=== PATIENT | female | born 1940 | race Caucasian/White ===

== ENCOUNTER 2016-08-22 09:14 | Emergency (ER) | payer MEDICARE ==
[2016-08-22 10:00] LABS: BILIRUBIN,URINE NEGATIVE (NEGATIVE)
[2016-08-22 10:07] LABS: UA w/ MICROSCOPIC CHARGE YES
[2016-08-22 10:13] LABS: BASOPHILS % (AUTO) 0.6 %; EOSINOPHILS # (AUTO) 0.1 10^3/uL (0.0-0.7); EOSINOPHILS % (AUTO) 0.7 %; HCT - HEMATOCRIT 41.3 % (37.0-47.0); HGB - HEMOGLOBIN 13.8 g/dL (12.0-16.0); LYMPHOCYTES # (AUTO) 0.9 10^3/uL (1.5-3.5); LYMPHOCYTES % (AUTO) 11.5 %; MEAN CORPUSCULAR HEMOGLOBIN 29.6 pg (27.0-31.0); MEAN CORPUSCULAR HGB CONC 33.5 g/dL (32.0-36.0); MEAN CORPUSCULAR VOLUME 88.4 fL (81.0-99.0); MEAN PLATELET VOLUME 7.9 fL (7.9-10.8); MONOCYTES # (AUTO) 0.5 10^3/uL (0.0-1.0); MONOCYTES % (AUTO) 6.7 %; NEUTROPHILS # (AUTO) 6.5 10^3/uL (1.5-6.6); NEUTROPHILS % (AUTO) 80.5 %; RED BLOOD COUNT 4.68 10^6/uL (4.20-5.40); RED CELL DISTRIBUTION WIDTH 12.7 % (12.0-15.0); UNCORRECTED WHITE BLOOD COUNT 8.1 x10^3/uL; WHITE BLOOD COUNT 8.1 x10^3/uL (4.8-10.8)
[2016-08-22 10:20] LABS: UR CULTURE IF IND NOT INDICATED
[2016-08-22 10:27] LABS: ALBUMIN/GLOBULIN RATIO 1.6 (1.0-2.2); CALCIUM 9.8 mg/dL (8.5-10.3); CREATININE 0.9 mg/dL (0.4-1.0); POTASSIUM 3.8 mmol/L (3.5-5.0); TOTAL PROTEIN 6.6 g/dL (6.7-8.2)
--- NOTE | 2016-08-22 11:04 | ED Physician Documentation ---
History of Present Illness - Stated complaint Stated Complaint: ABD PX - Chief complaint Chief Complaint: Abd Pain - Additonal information Additional information: hx from pt 75 female s/p appy and lap for peritonitis to ER with R flank to RLQ pain waxing and waning since last night presently gone shaking with the pain not now no fever no NVD no urinary sx Review of Systems Constitutional: reports: Chills. denies: Fever Cardiac: denies: Chest pain / pressure Respiratory: denies: Cough GI: reports: Abdominal Pain. 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 - Present Medications Home Medications: Ambulatory Orders Medication Instructions Recorded Confirmed Ciprofloxacin HCl [Cipro] 500 mg PO BID #20 tablet 08/22/16 Promethazine [Phenergan] 25 mg PO Q6H PRN #10 tab 08/22/16 Tamsulosin [Flomax] 0.4 mg PO DAILY #7 capsule 08/22/16 oxyCODONE [Roxicodone] 5 mg PO Q4-6H #10 tablet 08/22/16 - Allergies Allergies/Adverse Reactions: Allergies Allergy/AdvReac Type Severity Reaction Status Date / Time No Known Drug Allergies Allergy Verified 07/06/14 18:18 - Social History Does the pt smoke?: No Smoking Status: Never smoker Does the pt drink ETOH?: No Does the pt have substance abuse?: No - Immunizations Immunizations are current?: Yes PD ED PE NORMAL - Vitals Vital signs reviewed: Yes - General General: Alert and oriented X 3 - Cardiac Cardiac: RRR - Respiratory Respiratory: No respiratory distress - Abdomen Abdomen: Soft, Non tender, Other (no pulsatile mass) - Back Back: No CVA TTP - Derm Derm: Normal color - Neuro Neuro: Alert and oriented X 3 Results - Vitals Vitals: Vital Signs - 24 hr 08/22/16 08/22/16 09:20 12:12 Temperature 36.0 C L 36.5 C Heart Rate 73 67 Respiratory 18 16 Rate Blood Pressure 168/89 H 139/65 H O2 Saturation 98 97 Oxygen O2 Source Room air - Labs Labs: Laboratory Tests 05/09/0308/22/16 08/22/16 09:20 10:05 10:05 WBC 8.1 RBC 4.68 Hgb 13.8 Hct 41.3 MCV 88.4 MCH 29.6 MCHC 33.5 RDW 12.7 Plt Count 223 MPV 7.9 Neut # 6.5 Lymph # 0.9 L Emanuel # 0.5 Eos # 0.1 Baso # 0.0 Absolute Nucleated RBC 0.00 Nucleated RBCs 0.0 Sodium 141 Potassium 3.8 Chloride 109 Carbon Dioxide 25 Anion Gap 7.0 BUN 24 H Creatinine 0.9 Estimated GFR (MDRD) 61 L Glucose 113 H Calcium 9.8 Total Bilirubin 1.0 AST 22 ALT 16 Alkaline Phosphatase 68 Total Protein 6.6 L Albumin 4.1 Globulin 2.5 Albumin/Globulin Ratio 1.6 Lipase 33 Urine Color YELLOW Urine Clarity CLEAR Urine pH 6.0 Ur Specific [place] 1.020 Urine Protein NEGATIVE Urine Glucose (UA) NEGATIVE Urine Ketones NEGATIVE Urine Occult Blood LARGE H Urine Nitrite NEGATIVE Urine Bilirubin NEGATIVE Urine Urobilinogen 0.2 (NORMAL) Ur Leukocyte Esterase MODERATE H Urine RBC TNTC H Urine WBC 11-25 H Ur Epithelial Cells FEW Transitional Ur Squamous Epith Cells MOD Squamous H Urine Crystals 0-2 Calcium Oxalate Urine Bacteria Many H Ur Microscopic Review INDICATED Urine Culture Comments NOT INDICATED - Rads (name of study) CT AP Radiology: See rad report (1.3 cm right UPJ stone with hydro, also R kidney nodule rec sono, L kidney extra renal pelvis, 0.7 cm L ureteral stone as well, calcification in appendix but no inflammation to suggest acute appy) PD MEDICAL DECISION MAKING - ED course ED course: ivonne ureteral stone, R 1.3 cm with hydro, and infection also L ureteral stone but no hydro and renal fxn is fine and she is making urine high risk to develop bacteremia sepsis neither stone likely to pass spont will need urology no urology at [facility] gave hernandez and called Himanshu d/w urology Dr Colon at [facility] and he recommends if afebrile, nl WBC and renal fxn, pain controlled can dc on antibiotics with close fup so will dc on cipro and pt is fup urology Dr Colon Departure - Departure Disposition: 01 Home, Self Care Clinical Impression: Renal colic on right side Condition: Good Instructions: ED Stone Renal W Colic, ED Kidney Infec Female Prescriptions: Ciprofloxacin HCl [Cipro] 500 mg PO BID #20 tablet Tamsulosin [Flomax] 0.4 mg PO DAILY #7 capsule Promethazine [Phenergan] 25 mg PO Q6H PRN #10 tab PRN Reason: Nausea / Vomiting oxyCODONE [Roxicodone] 5 mg PO Q4-6H #10 tablet Comments: You do not have a fever and your pain is controlled at this time so the urologist Dr Colon in [facility] recommends that you can go home for the weekend on antibiotics, flomax to relax the ureter and medications to ease the pain and nausea as needed Dr Colon will see you next Thursday at [facility] You should go to the radiology department at [facility] at 1130 to get an xray to see if the stones are moving and then go to your appointment at 1230 The office is at [facility]. The address is [address] [place] [address]. The phone number is If you are worse in any way over the weekend (severe pain, fevers, shaking chills, cannot urinate) come straight back to the ER Please follow up with your PMD about your blood pressure - it was high today
--- NOTE | 2016-08-22 12:01 | CT Preliminary Report ---
Exam: CT Abdomen/Pelvis W/O IMPRESSION: 1. Right kidney shows mild hydronephrosis UPJ stone measuring up to 1.3 cm. Upper pole shows a smalle r nonobstructing left renal stone measuring 0.3 cm. Right kidney also shows a hyperdense right upper pole renal nodule measuring 1.2 cm. This is Bosniak type II lesion and ultrasound would be helpful. N o stones are seen in the distal ureter although this is somewhat difficult to visualize because numer ous pelvic phleboliths. 2. Left kidney shows an extra renal pelvis. A junction middle and distal thirds on the left side larg er tract stone is present measuring about 0.7 cm. No other stones are seen distally. 3. Calcification in the right lower quadrant medially located appendix. No surrounding inflammatory c hange. [facility] SITE ID: [id number]
--- NOTE | 2016-08-22 12:09 | CT Report ---
EXAM: CT ABDOMEN AND PELVIS (CT KUB) EXAM DATE: 08/22/2016 11:39 AM. CLINICAL HISTORY: Right flank to RLQ pain. COMPARISONS: None. TECHNIQUE: Routine axial helical CT imaging was performed through the abdomen and pelvis without IV c ontrast. Reconstructions: Coronal and sagittal. In accordance with CT protocol optimization, one or more of the following dose reduction techniques w ere utilized for this exam: automated exposure control, adjustment of mA and/or KV based on patient s ize, or use of iterative reconstructive technique. FINDINGS: Lung Bases: Normal. Right Kidney/Ureter: Right kidney shows mild hydronephrosis. There is a UPJ stone measuring 1.3 cm on series 3 image 50. The upper pole nonobstructing left renal stone is 0.3 cm on series 3 image 46. There is a hyperdense right upper pole renal nodule present measuring 1.2 cm on series 3 image 42. Distal right ureter shows no stones. Left Kidney/Ureter: Left kidney shows no hydronephrosis or stones. There is an extrarenal pelvis pres ent. At the junction of the middle and distal thirds on the left side, there is a large ureteric ston e measuring about 7 mm on series 3 image 78. No other stones are seen distally, although the distal u reter is somewhat difficult to visualize in the midst of several benign-appearing pelvic phleboliths. Other Solid Organs: Noncontrast images of the solid organs are grossly unremarkable. Gallbladder/Bile Ducts: Unremarkable. Peritoneal Cavity: No free fluid, free air or marcelo adenopathy. Bowel is grossly unremarkable. Calcif ication is seen in the right lower quadrant which may be located in the appendix. No surrounding infl ammatory change. Pelvic Organs: No bladder stones or wall thickening. Noncontrast images of the visualized pelvic orga ns are unremarkable. Vasculature: Unremarkable. Other: 4.9 mm retrolisthesis L3-L4. 3.4 mm anterolisthesis L4-L5. 3.2 mm retrolisthesis L5-S1. Disk s pace height loss L5-S1. IMPRESSION: 1. Right kidney shows mild hydronephrosis and a UPJ stone measuring up to 1.3 cm. Upper pole shows a smaller nonobstructing left renal stone measuring 0.3 cm. Right kidney also shows a hyperdense right upper pole renal nodule measuring 1.2 cm. This is Bosniak type II lesion and ultrasound would be help ful. No other stones are seen in the distal ureter although this is somewhat difficult to visualize b ecause of numerous pelvic phleboliths. 2. Left kidney shows an extra renal pelvis. At the junction of middle and distal thirds on the left s soila, a large ureteric stone is present measuring about 0.7 cm. No other stones are seen distally. 3. Calcification in the right lower quadrant may be located in the appendix. No surrounding inflammat ory change. [facility] Referring Provider Line: [phone] SITE ID: [id number]
[2016-08-22] MEDS ORDERED: cefTRIAXone 1 GM VIAL ONE (13:35)
[2016-08-22] MEDS: cefTRIAXone 1 GM in SODIUM CHLORIDE 0.9% MINIBAG 100 ML IV STA (13:53)
[2016-08-22 15:31] VITALS: BP 121/85
== END 2016-08-22 15:41 | disposition home or self-care (01) ==
LOC: ED 09:14
DX: N13.2 Hydronephrosis with renal and ureteral calculous obstruction (principal)
CPT/HCPCS: 36415; 74176; 80053; 81001; 81003; 83690; 85025; 87086; 96374; 99283; 99284

== ENCOUNTER 2016-11-18 11:18 | Outpatient (CLI) | payer MEDICARE ==
[2016-11-18 12:43] LABS: CREATININE 0.8 mg/dL (0.4-1.0)
== END 2016-11-18 11:19 | disposition home or self-care (01) ==
LOC: LAB 11:18
PROVIDERS: ATTEND Urology
DX: N20.1 Calculus of ureter (principal); R39.15 Urgency of urination; N28.9 Disorder of kidney and ureter, unspecified; R31.0 Gross hematuria; N20.0 Calculus of kidney; N13.30 Unspecified hydronephrosis; N39.41 Urge incontinence
CPT/HCPCS: 36415; 82565; 84520

== ENCOUNTER 2017-06-25 16:04 | Outpatient (CLI) | payer MEDICARE ==
[2017-06-25 16:28] LABS: BILIRUBIN,URINE NEGATIVE (NEGATIVE); GLUCOSE, URINE (UA) NEGATIVE (NEGATIVE); KETONES,URINE (UA) NEGATIVE (NEGATIVE); LEUKOCYTE ESTERASE, URINE SMALL (NEGATIVE); NITRITE,URINE NEGATIVE (NEGATIVE); OCCULT BLOOD,URINE NEGATIVE (NEGATIVE); PROTEIN,URINE NEGATIVE (NEGATIVE); UROBILINOGEN,URINE 0.2 (NORMAL) E.U./dL (NORMAL)
[2017-06-25 16:42] LABS: BACTERIA,URINE Few /HPF (None Seen); CLARITY,URINE CLEAR (CLEAR); RBC,URINE 0-5 /HPF (0-5); SQUAMOUS EPITHELIAL CELL,UR MOD Squamous (<= Few); WBC CLUMPS,URINE PRESENT
== END 2017-06-25 16:05 | disposition home or self-care (01) ==
LOC: LAB 16:04
PROVIDERS: ATTEND Urology
DX: R35.0 Frequency of micturition (principal); R30.0 Dysuria; R35.1 Nocturia; R39.15 Urgency of urination
CPT/HCPCS: 81001; 87086

== ENCOUNTER 2017-11-10 15:28 | Outpatient (CLI) | payer MEDICARE ==
[2017-11-10 17:41] LABS: BILIRUBIN,URINE NEGATIVE (NEGATIVE); GLUCOSE, URINE (UA) NEGATIVE (NEGATIVE); KETONES,URINE (UA) NEGATIVE (NEGATIVE); LEUKOCYTE ESTERASE, URINE LARGE (NEGATIVE); NITRITE,URINE NEGATIVE (NEGATIVE); OCCULT BLOOD,URINE TRACE-LYSE (NEGATIVE); PROTEIN,URINE NEGATIVE (NEGATIVE); UROBILINOGEN,URINE 0.2 (NORMAL) E.U./dL (NORMAL)
[2017-11-10 17:59] LABS: BACTERIA,URINE Many /HPF (None Seen); CLARITY,URINE CLOUDY (CLEAR); SQUAMOUS EPITHELIAL CELL,UR NONE SEEN (<= Few); WBC CLUMPS,URINE PRESENT
== END 2017-11-10 15:29 | disposition home or self-care (01) ==
LOC: LAB.F 15:28
PROVIDERS: ATTEND Urology
DX: R32 Unspecified urinary incontinence (principal); R39.9 Unspecified symptoms and signs involving the genitourinary system
CPT/HCPCS: 81001; 87086; 87181

== ENCOUNTER 2017-11-27 07:22 | Outpatient (CLI) | payer MEDICARE ==
[2017-11-27 11:15] LABS: CREATININE 0.7 mg/dL (0.4-1.0)
== END 2017-11-27 07:23 | disposition home or self-care (01) ==
LOC: LAB.F 07:22
PROVIDERS: ATTEND Urology
DX: N28.9 Disorder of kidney and ureter, unspecified (principal); N20.0 Calculus of kidney; N13.30 Unspecified hydronephrosis
CPT/HCPCS: 36415; 82565; 84520

== ENCOUNTER 2018-06-19 07:59 | Outpatient (CLI) | payer MEDICARE ==
[2018-06-19] MEDS ORDERED: IOVERSOL 320 100 ML VIAL IVP ONE ×2 (08:58→09:30)
[2018-06-19 08:59] LABS: CREATININE 0.7 mg/dL (0.4-1.0)
--- NOTE | 2018-06-20 23:03 | CT Report ---
Reason: RENAL LESION Procedure Date: 06/19/2018 Accession Number: [id number] / [id number] Procedure: CT - ABDOMEN W/WO CPT Code: FULL RESULT: EXAM: CT ABDOMEN WITHOUT AND WITH CONTRAST. EXAM DATE: 06/19/2018 09:25 AM. HISTORY: Renal lesion. COMPARISON: Abdomen and pelvis without 08/22/2016 11:29 AM. TECHNIQUE: Routine helical CT imaging was performed through the abdomen before and after administration of IV contrast: 90 cc Optiray 320. Enteric contrast: No. Reconstruction: Coronal and sagittal. In accordance with CT protocol optimization, one or more of the following dose reduction techniques were utilized for this exam: automated exposure control, adjustment of mA and/or KV based on patient size, or use of iterative reconstructive technique. FINDINGS: Lung Bases: Unremarkable. Liver: No suspicious mass identified with note of a chronic left liver cyst. No fatty infiltration. No vascular thrombosis. Biliary system: Gallbladder appears normal. No intrahepatic or extra hepatic biliary duct dilatation. Pancreas: No mass or duct dilatation seen. No peripancreatic inflammatory changes identified. Spleen: Normal. Right kidney: Chronic benign 15 mm hyperdense cyst at the upper pole of the right kidney. Bosniak type II cyst which does not require follow-up. No suspicious mass or hydronephrosis. Left kidney: Couple of tiny cyst of the lower pole measuring up to 8 mm. No solid appearing or suspicious mass identified. Chronic extrarenal pelvis. Adrenals: Normal. Peritoneal cavity: Grossly unremarkable where seen. Study not designed to evaluate bowel. Other: Large gonadal vein calcifications suspected. No definitive ureteral stone were visualized. IMPRESSION: 1. Small bilateral benign renal cysts. No solid appearing or suspicious mass on either side. No further follow-up necessary. 2. Chronic patulous left renal pelvis without evidence of any significant obstruction, likely normal variant. RAD[facility]
== END 2018-06-19 08:00 | disposition home or self-care (01) ==
LOC: LAB 07:59
PROVIDERS: ATTEND Urology
DX: N20.0 Calculus of kidney (principal); N13.30 Unspecified hydronephrosis; N28.1 Cyst of kidney, acquired; Q63.9 Congenital malformation of kidney, unspecified
CPT/HCPCS: 36415; 74170; 82565; 84520; Q9967

== ENCOUNTER 2018-12-29 14:41 | Outpatient (CLI) | payer MEDICARE ==
[2018-12-29 18:24] LABS: BILIRUBIN,URINE NEGATIVE (NEGATIVE); GLUCOSE, URINE (UA) NEGATIVE (NEGATIVE); KETONES,URINE (UA) NEGATIVE (NEGATIVE); LEUKOCYTE ESTERASE, URINE SMALL (NEGATIVE); NITRITE,URINE NEGATIVE (NEGATIVE); OCCULT BLOOD,URINE NEGATIVE (NEGATIVE); PROTEIN,URINE NEGATIVE (NEGATIVE); UROBILINOGEN,URINE 0.2 (NORMAL) E.U./dL (NORMAL)
[2018-12-29 18:49] LABS: BACTERIA,URINE None Seen /HPF (None Seen); CLARITY,URINE CLEAR (CLEAR); RBC,URINE 0-5 /HPF (0-5); SQUAMOUS EPITHELIAL CELL,UR RARE Squamous (<= Few)
== END 2018-12-29 14:42 | disposition home or self-care (01) ==
LOC: LAB.S 14:41
PROVIDERS: ATTEND Urology
DX: N20.0 Calculus of kidney (principal); Z87.440 Personal history of urinary (tract) infections
CPT/HCPCS: 81001; 87077; 87086; 87181

== ENCOUNTER 2019-01-05 13:13 | Outpatient (CLI) | payer MEDICARE ==
--- NOTE | 2019-01-05 16:52 | CT Report ---
Reason: RENAL CALCULUS Procedure Date: 01/05/2019 Accession Number: [id number] / [id number] Procedure: CT - Abdomen/Pelvis WO CPT Code: FULL RESULT: EXAM: CT ABDOMEN AND PELVIS (CT KUB) EXAM DATE: 01/05/2019 01:25 PM. CLINICAL HISTORY: RENAL CALCULUS. Pain. COMPARISONS: ABDOMEN W/WO 06/19/2018 9:15 AM ABDOMEN/PELVIS W/O 08/22/2016 11:29 AM. TECHNIQUE: Routine axial helical CT imaging was performed through the abdomen and pelvis without IV contrast. Reconstructions: Coronal and sagittal. In accordance with CT protocol optimization, one or more of the following dose reduction techniques were utilized for this exam: automated exposure control, adjustment of mA and/or KV based on patient size, or use of iterative reconstructive technique. FINDINGS: Lung Bases: No pleural effusion. Bibasilar linear scarring/atelectasis. Right Kidney/Ureter: Stable hyperdense 1.2 cm upper pole cyst. Punctate nonobstructing right lower pole calculus . No suspicious mass or hydronephrosis. Left Kidney/Ureter: Punctate nonobstructing left renal calculus 07/18. Sub-centimeter lower pole cyst . Stable prominent dilated extrarenal pelvis. Other Solid Organs: Stable left hepatic cyst. Stable unremarkable pancreas, spleen and adrenals Gallbladder/Bile Ducts: Unremarkable. Peritoneal Cavity: No free fluid, free air or marcelo adenopathy. Extensive fecal material throughout the entire colon, question fecal impaction. Multiple phleboliths are present. Pelvic Organs: No bladder stones or wall thickening. Vasculature: Unremarkable. Other: Multilevel degenerative change in the spine with vertebral body offset similar to previous IMPRESSION: 1. Punctate nonobstructing bilateral renal calculi. 2. Stable dilated left extrarenal pelvis. Stable hyperdense right upper pole renal cyst. Stable sub-centimeter left lower pole cyst. 3. Stable left hepatic cyst. 4. Extensive fecal material throughout the entire colon. 5. Stable multilevel degenerative change in the spine. RAD[facility]
== END 2019-01-05 13:14 | disposition home or self-care (01) ==
LOC: DI 13:13
PROVIDERS: ATTEND Urology
DX: N20.0 Calculus of kidney (principal); N28.1 Cyst of kidney, acquired; K76.89 Other specified diseases of liver
CPT/HCPCS: 74176

== ENCOUNTER 2019-01-09 17:43 | Emergency (ER) | payer MEDICARE ==
--- NOTE | 2019-01-09 17:56 | ED Physician Documentation ---
History of Present Illness - Stated complaint Stated Complaint: WEAK/ANXIETY - History obtained from History obtained from: Patient, Family - History of Present Illness Timing: Today - Additonal information Additional information: This is an 78-year-old woman who presents with her family complaints that today she feels overwhelmed and had what she thinks is an anxiety attack. She says she feels very weak, tired and anxious. She is worried about some testing that she has coming up this week including a Mohs procedure and an evaluation by a neurologist for some memory loss.She was with her sister when she just started to feel really hot and warm, sweaty and dizzy like she might pass out so she got up and went outside it lasted maybe 5 to 10 minutes after which she felt just extremely weak and and tired. They were to call the primary care provider but then decided that perhaps he should just come in and be evaluated. She did not really experience palpitations or knowledge feeling short of breath. She had no nausea or vomiting or visual changes. She is on amoxicillin currently for urinary tract infection. She has still some mild burning with urination. Denies history of heart disease or DVT. Review of Systems Constitutional: denies: Fever Eyes: denies: Loss of vision Ears: denies: Loss of hearing Nose: denies: Congestion Throat: denies: Sore throat Cardiac: denies: Chest pain / pressure, Palpitations Respiratory: denies: Dyspnea, Cough GI: reports: Nausea. denies: Abdominal Pain, Vomiting : denies: Dysuria Skin: reports: Lesions (On the left lower extremity that she is scheduled for a Mohs procedure on). denies: Rash Musculoskeletal: denies: Back pain Neurologic: reports: Generalized weakness, Other (Dizziness). 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 - Present Medications Home Medications: Ambulatory Orders Medication Instructions Recorded Confirmed Amoxicillin 500 mg PO 01/09/19 Glucos Sul 2Kcl/MSM/Chond/C/Mn 1 each PO 01/09/19 [Glucosamine Chondroitin Cap] Trospium Chloride 20 mg PO 01/09/19 - Allergies Allergies/Adverse Reactions: Allergies Allergy/AdvReac Type Severity Reaction Status Date / Time oxybutynin Allergy Unknown Verified 09/22/19 18:27 - Social History Does the pt smoke?: No Smoking Status: Never smoker Does the pt drink ETOH?: No Does the pt have substance abuse?: No - Immunizations Immunizations are current?: Yes PD ED PE NORMAL - Vitals Vital signs reviewed: Yes - General General: Alert and oriented X 3, No acute distress, Well developed/nourished, Other (Thin 78-year-old woman who is not in acute distress) - HEENT HEENT: Atraumatic, PERRL, EOMI, Moist mucous membranes - Neck Neck: No adenopathy, Thyroid normal - Cardiac Cardiac: RRR, No murmur - Respiratory Respiratory: No respiratory distress, Clear bilaterally - Abdomen Abdomen: Normal bowel sounds, Soft, Non tender, No organomegaly - Derm Derm: Normal color, Warm and dry, No rash - Extremities Extremities: No edema - Neuro 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: 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, No motor deficit, No sensory deficit, Normal speech - Psych Psych: Normal mood, Normal affect Results - Vitals Vitals: Vital Signs - 24 hr 01/09/19 01/09/19 01/09/19 17:55 18:45 21:03 Temperature 36.5 C Heart Rate 100 89 86 Respiratory 14 18 10 L Rate Blood Pressure 165/76 H 157/86 H 121/62 O2 Saturation 96 98 96 Oxygen O2 Source Room air - EKG (time done) 1833 Rate: Rate (enter#) Rhythm: NSR Intervals: Normal ND QRS: Normal Ischemia: Normal ST segments Other comments: Other comments (PVC) Compare to prior EKG: Old EKG unavailable Computer interpretation: Agree with computer - Labs Labs: Laboratory Tests 01/09/19 01/09/19 01/09/19 18:00 18:41 18:41 WBC 6.7 RBC 4.43 Hgb 13.3 Hct 40.9 MCV 92.3 MCH 30.0 MCHC 32.5 RDW 12.0 Plt Count 227 MPV 9.7 Neut # (Auto) 4.2 Lymph # (Auto) 1.7 [place] # (Auto) 0.7 Eos # (Auto) 0.1 Baso # (Auto) 0.1 Absolute Nucleated RBC 0.00 Nucleated RBC % 0.0 Sodium 143 Potassium 3.8 Chloride 109 Carbon Dioxide 26 Anion Gap 8.0 BUN 19 Creatinine 0.9 Estimated GFR (MDRD) 60 L Glucose 101 H Calcium 10.1 Total Bilirubin 0.9 AST 33 ALT 36 Alkaline Phosphatase 72 Troponin I High Sens Total Protein 6.5 L Albumin 4.0 Globulin 2.5 Albumin/Globulin Ratio 1.6 Lipase 28 Urine Color YELLOW Urine Clarity CLEAR Urine pH 6.0 Ur Specific [place] 1.015 Urine Protein NEGATIVE Urine Glucose (UA) NEGATIVE Urine Ketones NEGATIVE Urine Occult Blood NEGATIVE Urine Nitrite NEGATIVE Urine Bilirubin NEGATIVE Urine Urobilinogen 0.2 (NORMAL) Ur Leukocyte Esterase SMALL H Urine RBC 0-5 Urine WBC 6-10 H Ur Squamous Epith Cells MANY Squamous H Urine Crystals 0-2 Calcium Oxalate Urine Bacteria Few Ur Microscopic Review INDICATED Urine Culture Comments NOT INDICATED 01/09/19 01/09/19 18:41 21:17 WBC RBC Hgb Hct MCV MCH MCHC RDW Plt Count MPV Neut # (Auto) Lymph # (Auto) [place] # (Auto) Eos # (Auto) Baso # (Auto) Absolute Nucleated RBC Nucleated RBC % Sodium Potassium Chloride Carbon Dioxide Anion Gap BUN Creatinine Estimated GFR (MDRD) Glucose Calcium Total Bilirubin AST ALT Alkaline Phosphatase Troponin I High Sens 3.9 6.0 Total Protein Albumin Globulin Albumin/Globulin Ratio Lipase Urine Color Urine Clarity Urine pH Ur Specific [place] Urine Protein Urine Glucose (UA) Urine Ketones Urine Occult Blood Urine Nitrite Urine Bilirubin Urine Urobilinogen Ur Leukocyte Esterase Urine RBC Urine WBC Ur Squamous Epith Cells Urine Crystals Urine Bacteria Ur Microscopic Review Urine Culture Comments - Rads (name of study) CXR Radiology: EMP read indepedently (Cardiomeg. No infiltrate. Elevation of L hemidiaphragm), EMP read contemporaneously PD MEDICAL DECISION MAKING - ED course Complexity details: reviewed results, re-evaluated patient, d/w patient, d/w family ED course: CBC is normal. The EKG does not show acute changes. Her initial troponin was 3.9 and a 3-hour repeat had risen to 6.0. Patient had a very discrete episode of pain and I do not feel comfortable discharging her without verifying that this is not an upward trend on the troponin. I discussed with the hospitalist about admitting her for an observation however he requested that she be kept in the emergency department to recheck the troponin. This was discussed with the family and a repeat troponin will be drawn at 12:45 in the morning. Care turned to Dr Irizarry at 2333.
[2019-01-09 18:09] LABS: BILIRUBIN,URINE NEGATIVE (NEGATIVE); GLUCOSE, URINE (UA) NEGATIVE (NEGATIVE); KETONES,URINE (UA) NEGATIVE (NEGATIVE); LEUKOCYTE ESTERASE, URINE SMALL (NEGATIVE); NITRITE,URINE NEGATIVE (NEGATIVE); OCCULT BLOOD,URINE NEGATIVE (NEGATIVE); PROTEIN,URINE NEGATIVE (NEGATIVE); UROBILINOGEN,URINE 0.2 (NORMAL) E.U./dL (NORMAL)
[2019-01-09 18:10] LABS: CLARITY,URINE CLEAR (CLEAR)
[2019-01-09 18:17] LABS: BACTERIA,URINE Few /HPF (None Seen); CRYSTALS,URINE 0-2 Calcium Oxalate /LPF; RBC,URINE 0-5 /HPF (0-5); SQUAMOUS EPITHELIAL CELL,UR MANY Squamous (<= Few)
[2019-01-09 18:45] LABS: BASOPHILS # (AUTO) 0.1 10^3/uL (0.0-0.1); BASOPHILS % (AUTO) 0.7 %; EOSINOPHILS # (AUTO) 0.1 10^3/uL (0.0-0.7); EOSINOPHILS % (AUTO) 1.8 %; HGB - HEMOGLOBIN 13.3 g/dL (12.0-16.0); LYMPHOCYTES # (AUTO) 1.7 10^3/uL (1.5-3.5); LYMPHOCYTES % (AUTO) 24.9 %; MEAN CORPUSCULAR HGB CONC 32.5 g/dL (32.0-36.0); MEAN CORPUSCULAR VOLUME 92.3 fL (81.0-99.0); MEAN PLATELET VOLUME 9.7 fL (7.9-10.8); MONOCYTES # (AUTO) 0.7 10^3/uL (0.0-1.0); MONOCYTES % (AUTO) 10.2 %; NEUTROPHILS # (AUTO) 4.2 10^3/uL (1.5-6.6); NEUTROPHILS % (AUTO) 62.1 %; PLT - PLATELET COUNT 227 10^3/uL (130-450); RED BLOOD COUNT 4.43 10^6/uL (4.20-5.40); WHITE BLOOD COUNT 6.7 x10^3/uL (4.8-10.8)
[2019-01-09 18:57] LABS: ALBUMIN/GLOBULIN RATIO 1.6 (1.0-2.2); BILIRUBIN,TOTAL 0.9 mg/dL (0.2-1.0); CALCIUM 10.1 mg/dL (8.5-10.3); CREATININE 0.9 mg/dL (0.4-1.0); TOTAL PROTEIN 6.5 g/dL (6.7-8.2)
--- NOTE | 2019-01-09 19:08 | XRAY Report ---
Reason: chest pain Procedure Date: 01/09/2019 Accession Number: [id number] / [id number] Procedure: XR - Chest 1 View X-Ray CPT Code: 45235 FULL RESULT: EXAM: CHEST RADIOGRAPHY EXAM DATE: 01/09/2019 06:35 PM. CLINICAL HISTORY: Chest pain. COMPARISON: ABDOMEN/PELVIS W/O 01/05/2019 1:24 PM. TECHNIQUE: 1 view. FINDINGS: Lungs/Pleura: Mild blunting of the right costophrenic angle. Mildly elevated left hemidiaphragm noted. No consolidation or pneumothorax. Mediastinum: Mild cardiac enlargement noted. Atheromatous plaques of the thoracic arch is noted. Other: None. IMPRESSION: 1. Possible small right pleural effusion. No pneumothorax or significant left lower effusion. Mildly elevated left hemidiaphragm noted. 2. Mild cardiac enlargement. 3. No consolidation. [facility]
[2019-01-10 02:36] VITALS: BP 158/79
--- NOTE | 2019-01-20 04:45 | MISCELLANEOUS PROVIDER NOTE ---
Miscellaneous Provider Note - - Note: Care of this patient was turned over to me by Dr. Bain. Patient had episode of diaphoresis and lightheadedness that resolved prior to ED arrival. EKG did not demonstrate acute changes and high sensitivity troponin x 2 are normal but second result was higher compared with initial result. The two results were from samples obtained three hours apart. Plan is hold in ED for a third high sensitivity troponin and then reevaluate. The third troponin (three hours from previous) reveals no significant change (actually decreased from previous. first result was 3.9, followed by 6.0, and then 5.9). Repeat EKG is normal sinus rhythm at [address] segment abnormalities. Patient is in NAD and tells me she has not had any symptoms during ED stay. She is comfortable with d/c home, will return if symptoms recur, and will follow up with her doctor as soon as feasible. DISPOSITION: 01 Home, self care CLINICAL IMPRESSION: atypical chest pain, unknown cause CONDITION: Good
== END 2019-01-10 03:16 | disposition home or self-care (01) ==
LOC: ED 17:43
DX: R07.89 Other chest pain (principal)
CPT/HCPCS: 36415; 71045; 80053; 81001; 81003; 83690; 84484; 85025; 87086; 93005; 99284

== ENCOUNTER 2019-02-04 12:48 | Emergency (ER) | payer MEDICARE ==
[2019-02-04] MEDS ORDERED: TETANUS/DIPHTHERIA/PERTUSSIS 0.5 ML SYRINGE IM ONE (13:43)
[2019-02-04] MEDS ORDERED: BACITRACIN ZINC OINT 14 GM TOP STA (13:43)
--- NOTE | 2019-02-04 13:45 | ED Physician Documentation ---
History of Present Illness - Stated complaint Stated Complaint: R LEG LACERATION - Chief complaint Chief Complaint: Laceration - History obtained from History obtained from: Patient, Family - History of Present Illness Timing: Today Pain level max: 0 Pain level now: 0 - Additonal information Additional information: Patient hit her right lower extremity against a chair creating a skin tear/laceration to the right lower leg. Bleeding controlled. Unknown last tetanus. Nothing makes it worse. Better with pressure. 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 - Present Medications Home Medications: Ambulatory Orders Medication Instructions Recorded Confirmed Trospium Chloride 20 mg PO 01/09/19 Bacitracin Zinc Oint 1 applic TOP BID #1 tube 02/04/19 - Allergies Allergies/Adverse Reactions: Allergies Allergy/AdvReac Type Severity Reaction Status Date / Time oxybutynin Allergy Unknown Verified 02/04/19 12:59 - Social History Does the pt smoke?: No Smoking Status: Never smoker Does the pt drink ETOH?: No Does the pt have substance abuse?: No - Immunizations Immunizations are current?: No Immunizations: TDAP >10years/unknown PD ED PE NORMAL - Vitals Vital signs reviewed: Yes - General General: Alert and oriented X 3, No acute distress - Derm Derm: Warm and dry - Extremities Extremities: Other (Right lower extremity - 3 cm skin tear, flap laceration. Neurovascular intact.) - Neuro Neuro: Alert and oriented X 3 Results - Vitals Vitals: Vital Signs - 24 hr 02/04/19 12:59 Temperature 36.6 C Heart Rate 98 Respiratory 16 Rate Blood Pressure 148/96 H O2 Saturation 98 Oxygen O2 Source Room air Procedures - Laceration (location) Right lower extremity Length in cm: 3 Wound type: Curved, Flap, Superficial, Clean Neurovascular status: Sensory intact, Motor intact, Vascular intact Wound Preparation: Irrigated copiously NS, Wound explored, To the base Skin layer closure: [place] Other: Patient tolerated well, No complications, Neurovascular intact, Dressing applied (Mepitel), Tetanus booster given Complexity: Simple PD MEDICAL DECISION MAKING - ED course Complexity details: considered differential, d/w patient, d/w family ED course: Patient with a right lower extremity skin tear. Tdap given. Wound was cleansed and then closed with scott. Tolerated well. Mepitel was placed over this. Bacitracin was then applied and a light layer of Kerlix. Warnings of infection and instructions on wound care given at bedside. Also counseled on how to minimize scarring. Patient and family were counseled regarding the potential poor healing of these wounds and the potential need for wound care. Patient and family counseled regarding signs and symptoms for which I believe and urgent re-evaluation would be necessary. Patient with good understanding of and agreement to plan and is comfortable going home at this time This document was made in part using voice recognition software. While efforts are made to proofread this document, sound alike and grammatical errors may occur. Departure - Departure Disposition: 01 Home, Self Care Clinical Impression: Skin tear Condition: Good Instructions: ED Laceration All Follow-Up: Caroline Tapia ARNP [Primary Care Provider] - Prescriptions: Bacitracin Zinc Oint 1 applic TOP BID #1 tube Comments: Follow-up with your doctor in approximately 14 days for staple removal. Leave the Mepitel in place. You can apply antibiotic ointment twice a day on the surface of the Mepitel and then wrapped with a clean bandage. Return if you notice redness, swelling or drainage from the wound. These wounds can be difficult to heal and may require wound care. You were given a tetanus shot today as well.
[2019-02-04] MEDS ORDERED: BACITRACIN ZINC OINT 14 GM TOP ONE (13:52)
[2019-02-04 14:06] VITALS: BP 140/88
== END 2019-02-04 14:05 | disposition home or self-care (01) ==
LOC: ED 12:48
DX: S81.811A Laceration without foreign body, right lower leg, initial encounter (principal); W22.03XA Walked into furniture, initial encounter; Z23 Encounter for immunization
CPT/HCPCS: 12002; 99282; 99283; A9270

== ENCOUNTER 2019-02-05 12:02 | Emergency (ER) | payer MEDICARE ==
[2019-02-05 12:16] VITALS: BP 158/88
[2019-02-05] MEDS ORDERED: BACITRACIN ZINC OINT 14 GM TOP STA (13:05)
--- NOTE | 2019-02-05 13:09 | ED Physician Documentation ---
History of Present Illness - Stated complaint Stated Complaint: WOUND CHECK - Chief complaint Chief Complaint: Laceration - History obtained from History obtained from: Patient - History of Present Illness Timing: Yesterday Pain level max: 0 Pain level now: 0 Improved by: Nothing Worsened by: Nothing - Additonal information Additional information: Patient seen here yesterday for a right lower extremity wound. States bleeding from the wound noted today. No fevers. No redness. No swelling. 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 - Present Medications Home Medications: Ambulatory Orders Medication Instructions Recorded Confirmed Trospium Chloride 20 mg PO 01/09/19 Bacitracin Zinc Oint 1 applic TOP BID #1 tube 02/04/19 - Allergies Allergies/Adverse Reactions: Allergies Allergy/AdvReac Type Severity Reaction Status Date / Time oxybutynin Allergy Unknown Verified 02/04/19 12:59 - Social History Does the pt smoke?: No Smoking Status: Never smoker Does the pt drink ETOH?: No Does the pt have substance abuse?: No - Immunizations Immunizations are current?: No Immunizations: TDAP >10years/unknown PD ED PE NORMAL - Vitals Vital signs reviewed: Yes - General General: Alert and oriented X 3, No acute distress - HEENT HEENT: Moist mucous membranes - Derm Derm: Warm and dry - Extremities Extremities: Other (Slight bleeding from the laceration to the right lower extremity) - Neuro Neuro: Alert and oriented X 3 Results - Vitals Vitals: Vital Signs - 24 hr 02/05/19 12:12 Temperature 36.5 C Heart Rate 96 Respiratory 18 Rate Blood Pressure 158/88 H O2 Saturation 98 Oxygen O2 Source Room air PD MEDICAL DECISION MAKING - ED course Complexity details: reviewed old records, considered differential, d/w patient, d/w family ED course: Additional scott were applied to the wound. Bleeding resolved. Mepitel was reapplied. Wounds were cleansed and bandaged. Bacitracin applied. Warnings of infection and instructions on wound care given at bedside. Also counseled on how to minimize scarring. Patient counseled regarding signs and symptoms for which I believe and urgent re-evaluation would be necessary. Patient with good unde rstanding of and agreement to plan and is comfortable going home at this time This document was made in part using voice recognition software. While efforts are made to proofread this document, sound alike and grammatical errors may occur. Departure - Departure Disposition: 01 Home, Self Care Clinical Impression: Visit for wound check Condition: Good Instructions: ED Laceration All Follow-Up: Caroline Tapia ARNP [Primary Care Provider] - Within 1 week Comments: Follow-up as instructed yesterday. Return if you worsen. Continue the antibiotic ointment at home. Follow-up with your doctor in approximately 10 to 14 days for staple removal. Discharge Date/Time: 02/05/19 13:44
== END 2019-02-05 13:44 | disposition home or self-care (01) ==
LOC: ED 12:02
DX: S81.811A Laceration without foreign body, right lower leg, initial encounter (principal); X58.XXXA Exposure to other specified factors, initial encounter
CPT/HCPCS: 99282; 99284; A9270

== ENCOUNTER 2019-02-07 08:00 | Outpatient (CLI) | payer MEDICARE | END 2019-02-07 23:59 | disposition home or self-care (01) | LOC: LAB.R 08:00 | PROVIDERS: ATTEND Registered Nurse | DX: R30.0 Dysuria (principal) | CPT/HCPCS: 87086 ==

== ENCOUNTER 2019-02-07 16:32 | Outpatient (CLI) | payer MEDICARE ==
--- NOTE | 2019-02-07 22:12 | MRI Report ---
Reason: COGNITIVE DECLINE Procedure Date: 02/07/2019 Accession Number: [id number] / [id number] Procedure: MRI - Brain W/O CPT Code: FULL RESULT: EXAM: MRI BRAIN WITHOUT CONTRAST EXAM DATE: 02/07/2019 05:20 PM. CLINICAL HISTORY: COGNITIVE DECLINE. COMPARISON: HEAD W/O 03/02/2015 4:10 PM. TECHNIQUE: Multiplanar, multisequence T1-weighted and fluid-sensitive MR sequences of the brain were performed. Sequences optimized for routine evaluation. Other: None. IV Contrast: None. FINDINGS: Brain Volume: Normal for age. Parenchyma/Dura: No mass, acute infarct or hemorrhage. There are scattered foci of increased T2 signal involving white matter of bilateral cerebral hemispheres. No evidence of prior large vascular territory infarct. Ventricles/Cisterns: No hydrocephalus. No abnormal extra-axial fluid collection or hemorrhage. Orbits: Symmetric and unremarkable. Sella [place]: Unremarkable. IAC: Symmetric and unremarkable. Vasculature: Normal signal flow void is seen in the major arterial structures at the skull base. Sinuses: There is paranasal sinus mucosal thickening. No sinus fluid levels. Bones: There is a 1.8 cm low T1 signal focus in the left frontal calvarium. Other: None. IMPRESSION: 1. No evidence of mass, infarct, or other acute intracranial process. 2. Moderate microvascular white matter disease. 3. 1.8 m left frontal low T1 signal skull lesion. Appearance is nonspecific and differential considerations include benign lesion or metastatic disease. If clinically indicated postcontrast T1 fat saturation imaging may be helpful. [facility]
== END 2019-02-07 16:33 | disposition home or self-care (01) ==
LOC: DI 16:32
PROVIDERS: ATTEND Psychiatry & Neurology Neurology
DX: R41.81 Age-related cognitive decline (principal); R90.82 White matter disease, unspecified; M89.9 Disorder of bone, unspecified; R30.0 Dysuria
CPT/HCPCS: 70551; 87086; 87181

== ENCOUNTER 2019-03-06 10:04 | Emergency (ER) | payer MEDICARE ==
[2019-03-06 10:34] LABS: MUDS CUTOFF CONCENTRATIONS CUTOFF CONC BELOW:
[2019-03-06 10:41] LABS: BILIRUBIN,URINE NEGATIVE (NEGATIVE); GLUCOSE, URINE (UA) NEGATIVE (NEGATIVE); KETONES,URINE (UA) NEGATIVE (NEGATIVE); LEUKOCYTE ESTERASE, URINE TRACE (NEGATIVE); NITRITE,URINE POSITIVE (NEGATIVE); OCCULT BLOOD,URINE NEGATIVE (NEGATIVE); PH,URINE 7.5 PH (5.0-7.5); PROTEIN,URINE NEGATIVE (NEGATIVE); UROBILINOGEN,URINE 0.2 (NORMAL) E.U./dL (NORMAL)
[2019-03-06 10:44] LABS: CLARITY,URINE CLEAR (CLEAR)
[2019-03-06 10:51] LABS: AMPHETAMINE SCREEN,URINE NEGATIVE (NEGATIVE); BENZODIAZEPINES SCREEN, URINE NEGATIVE (NEGATIVE); COCAINE SCREEN URINE NEGATIVE (NEGATIVE); METHADONE SCREEN, URINE NEGATIVE (NEGATIVE); METHAMPHETAMINES SCREEN, URINE NEGATIVE (NEGATIVE); OPIATE SCREEN, URINE NEGATIVE (NEGATIVE); OXYCODONE SCREEN, URINE NEGATIVE (NEGATIVE); PROPOXYPHENE SCREEN, URINE NEGATIVE (NEGATIVE); TRICYCLIC ANTIDEPRESSANT,URINE NEGATIVE (NEGATIVE)
[2019-03-06 10:58] LABS: BACTERIA,URINE Few /HPF (None Seen); RBC,URINE 0-5 /HPF (0-5); SQUAMOUS EPITHELIAL CELL,UR RARE Squamous (<= Few)
[2019-03-06 11:24] LABS: BASOPHILS # (AUTO) 0.1 10^3/uL (0.0-0.1); BASOPHILS % (AUTO) 0.9 %; EOSINOPHILS # (AUTO) 0.1 10^3/uL (0.0-0.7); EOSINOPHILS % (AUTO) 1.1 %; HGB - HEMOGLOBIN 12.8 g/dL (12.0-16.0); LYMPHOCYTES # (AUTO) 1.1 10^3/uL (1.5-3.5); LYMPHOCYTES % (AUTO) 19.7 %; MEAN CORPUSCULAR HEMOGLOBIN 29.2 pg (27.0-31.0); MEAN CORPUSCULAR VOLUME 94.1 fL (81.0-99.0); MEAN PLATELET VOLUME 9.5 fL (7.9-10.8); MONOCYTES # (AUTO) 0.4 10^3/uL (0.0-1.0); MONOCYTES % (AUTO) 7.8 %; NEUTROPHILS # (AUTO) 3.9 10^3/uL (1.5-6.6); NEUTROPHILS % (AUTO) 70.1 %; PLT - PLATELET COUNT 216 10^3/uL (130-450); RED BLOOD COUNT 4.39 10^6/uL (4.20-5.40); WHITE BLOOD COUNT 5.5 x10^3/uL (4.8-10.8)
[2019-03-06 11:40] LABS: ACETAMINOPHEN < 10 ug/mL (10-30); ALBUMIN/GLOBULIN RATIO 1.7 (1.0-2.2); ALKALINE PHOSPHATASE 71 IU/L (42-121); ALT ALANINE AMINOTRANSFERASE 31 IU/L (10-60); AST ASPARTATE AMINOTRANSFERASE 31 IU/L (10-42); BILIRUBIN,TOTAL 1.1 mg/dL (0.2-1.0); BUN - BLOOD UREA NITROGEN 13 mg/dL (6-20); CALCIUM 9.9 mg/dL (8.5-10.3); CARBON DIOXIDE - CO2 27 mmol/L (21-32); CHLORIDE 107 mmol/L (101-111); CREATININE 0.8 mg/dL (0.4-1.0); GFR - MDRD 69 (>89); GLUCOSE 128 mg/dL (70-100); LIPASE 27 U/L (22-51); SALICYLATE < 6.0 mg/dL; SODIUM 142 mmol/L (135-145); TOTAL PROTEIN 6.3 g/dL (6.7-8.2)
[2019-03-06 12:02] VITALS: BP 147/96
--- NOTE | 2019-03-06 12:19 | ED Physician Documentation ---
PD HPI MHE - Stated complaint Stated Complaint: MHE - Chief complaint Chief Complaint: MHE - History obtained from History obtained from: Patient, Family (daughter) - History of Present Illness Primary symptom: Aggressive behavior (78-year-old woman with recent diagnosis of dementia about 2 months ago, saw her neurologist a couple of times and had a relatively normal MRI per the daughter. She was started on Zoloft about 2 weeks ago, it was stopped almost immediately because in the morning she has been agitated and yelling and screaming. Also of note the neurologist told her to try CBD oil for sedation, that did not seem to effective either. For the last 2 weeks in the mornings she is yelling and screaming at the . They live in a private residence, the daughter is right next door. They have home health coming in starting tomorrow.) Review of Systems Constitutional: denies: Fever GI: denies: Abdominal Pain, Nausea, Vomiting : reports: Frequency. 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 - Present Medications Home Medications: Ambulatory Orders Medication Instructions Recorded Confirmed Trospium Chloride 20 mg PO 01/09/19 Bacitracin Zinc Oint 1 applic TOP BID #1 tube 02/04/19 Ciprofloxacin [Cipro] 250 mg PO Q12H #10 tablet 03/06/19 OLANZapine [Olanzapine] 2.5 mg PO QPM #60 tablet 03/06/19 - Allergies Allergies/Adverse Reactions: Allergies Allergy/AdvReac Type Severity Reaction Status Date / Time oxybutynin Allergy Unknown Verified 03/06/19 10:25 sertraline [From Zoloft] AdvReac Unknown Verified 03/06/19 10:26 - Social History Does the pt smoke?: No Smoking Status: Never smoker Does the pt drink ETOH?: No Does the pt have substance abuse?: No - Immunizations Immunizations are current?: No Immunizations: TDAP >10years/unknown PD ED PE NORMAL - Vitals Vital signs reviewed: Yes - General General: No acute distress, Other (She is alert and oriented to person and place but not date but she does know the year and the president.) - HEENT HEENT: PERRL, EOMI - Neck Neck: Supple, no meningeal sign, No bony TTP - Cardiac Cardiac: RRR, No murmur - Respiratory Respiratory: No respiratory distress, Clear bilaterally - Abdomen Abdomen: Normal bowel sounds, Soft, Non tender - Back Back: No CVA TTP, No spinal TTP - Derm Derm: Normal color, Warm and dry - Extremities Extremities: No edema, No calf tenderness / cord - Neuro Neuro: brass roller 2-12 intact, No motor deficit, No sensory deficit, Normal speech Eye Opening: Spontaneous Motor: Obeys Commands Verbal: Oriented GCS Score: 15 - Psych Psych: Normal mood, Normal affect Results - Vitals Vitals: Vital Signs - 24 hr 03/06/19 03/06/19 10:22 12:02 Temperature 36.4 C L Heart Rate 96 99 Respiratory 20 18 Rate Blood Pressure 162/86 H 147/96 H O2 Saturation 98 96 Oxygen O2 Source Room air - Labs Labs: Laboratory Tests 03/06/19 03/06/19 03/06/19 10:11 11:18 11:18 WBC 5.5 RBC 4.39 Hgb 12.8 Hct 41.3 MCV 94.1 MCH 29.2 MCHC 31.0 L RDW 12.0 Plt Count 216 MPV 9.5 Neut # (Auto) 3.9 Lymph # (Auto) 1.1 L Gordon # (Auto) 0.4 Eos # (Auto) 0.1 Baso # (Auto) 0.1 Absolute Nucleated RBC 0.00 Nucleated RBC % 0.0 Sodium 142 Potassium 3.4 L Chloride 107 Carbon Dioxide 27 Anion Gap 8.0 BUN 13 Creatinine 0.8 Estimated GFR (MDRD) 69 L Glucose 128 H Calcium 9.9 Total Bilirubin 1.1 H AST 31 ALT 31 Alkaline Phosphatase 71 Total Protein 6.3 L Albumin 4.0 Globulin 2.3 Albumin/Globulin Ratio 1.7 Lipase 27 TSH Urine Color DARK YELLOW Urine Clarity CLEAR Urine pH 7.5 Ur Specific [place] 1.010 Urine Protein NEGATIVE Urine Glucose (UA) NEGATIVE Urine Ketones NEGATIVE Urine Occult Blood NEGATIVE Urine Nitrite POSITIVE H Urine Bilirubin NEGATIVE Urine Urobilinogen 0.2 (NORMAL) Ur Leukocyte Esterase TRACE H Urine RBC 0-5 Urine WBC 0-3 Ur Squamous Epith Cells RARE Squamous Urine Bacteria Few Ur Microscopic Review INDICATED Urine Culture Comments INDICATED Salicylates < 6.0 Urine Opiates Screen NEGATIVE Ur Oxycodone Screen NEGATIVE Urine Methadone Screen NEGATIVE Ur Propoxyphene Screen NEGATIVE Acetaminophen < 10 L Ur Barbiturates Screen NEGATIVE Ur Tricyclics Screen NEGATIVE Ur Phencyclidine Scrn NEGATIVE Ur Amphetamine Screen NEGATIVE U Methamphetamines Scrn NEGATIVE U Benzodiazepines Scrn NEGATIVE Urine Cocaine Screen NEGATIVE U Cannabinoids Screen POSITIVE H Ethyl Alcohol < 5.0 03/06/19 11:18 WBC RBC Hgb Hct MCV MCH MCHC RDW Plt Count MPV Neut # (Auto) Lymph # (Auto) Gordon # (Auto) Eos # (Auto) Baso # (Auto) Absolute Nucleated RBC Nucleated RBC % Sodium Potassium Chloride Carbon Dioxide Anion Gap BUN Creatinine Estimated GFR (MDRD) Glucose Calcium Total Bilirubin AST ALT Alkaline Phosphatase Total Protein Albumin Globulin Albumin/Globulin Ratio Lipase TSH 0.27 L Urine Color Urine Clarity Urine pH Ur Specific [place] Urine Protein Urine Glucose (UA) Urine Ketones Urine Occult Blood Urine Nitrite Urine Bilirubin Urine Urobilinogen Ur Leukocyte Esterase Urine RBC Urine WBC Ur Squamous Epith Cells Urine Bacteria Ur Microscopic Review Urine Culture Comments Salicylates Urine Opiates Screen Ur Oxycodone Screen Urine Methadone Screen Ur Propoxyphene Screen Acetaminophen Ur Barbiturates Screen Ur Tricyclics Screen Ur Phencyclidine Scrn Ur Amphetamine Screen U Methamphetamines Scrn U Benzodiazepines Scrn Urine Cocaine Screen U Cannabinoids Screen Ethyl Alcohol PD MEDICAL DECISION MAKING - ED course ED course: This is an 78-year-old woman with dementia who is developed some aggressive behaviors in the morning. I advised to stop the CBD and marijuana, we will start a low-dose of Zyprexa in the evening which can be advanced to twice a day if needed, she does have a UTI which we will treat as well. Departure - Departure Disposition: 01 Home, Self Care Clinical Impression: UTI (urinary tract infection) Qualifiers: Urinary tract infection type: acute cystitis Hematuria presence: without hematuria Qualified Code(s): N30.00 - Acute cystitis without hematuria Dementia Qualifiers: Dementia type: Alzheimer's disease Alzheimer's disease onset: unspecified onset Dementia behavioral disturbance: with behavioral disturbance Qualified Code(s): G30.9 - Alzheimer's disease, unspecified Condition: Good Record reviewed to determine appropriate education?: Yes Instructions: ED Dementia Caregiver Support, ED UTI Cystitis Female Prescriptions: Ciprofloxacin [Cipro] 250 mg PO Q12H #10 tablet OLANZapine [Olanzapine] 2.5 mg PO QPM #60 tablet Comments: Followup with the neurologist in [place], call tomorrow for next appointment. We will culture the urine, if a change in therapy is necessary we will call in 2-3 days. Return if worse.
== END 2019-03-06 12:40 | disposition home or self-care (01) ==
LOC: ED 10:04
DX: N30.00 Acute cystitis without hematuria (principal); G30.9 Alzheimer's disease, unspecified
CPT/HCPCS: 36415; 80053; 80306; 80307; 80320; 80329; 81001; 81003; 83690; 84443; 85025; 87086; 99283

== ENCOUNTER 2019-03-21 07:00 | Outpatient (CLI) | payer MEDICARE ==
[2019-03-21 20:13] LABS: BILIRUBIN,URINE NEGATIVE (NEGATIVE); GLUCOSE, URINE (UA) NEGATIVE (NEGATIVE); KETONES,URINE (UA) NEGATIVE (NEGATIVE); LEUKOCYTE ESTERASE, URINE NEGATIVE (NEGATIVE); NITRITE,URINE NEGATIVE (NEGATIVE); OCCULT BLOOD,URINE NEGATIVE (NEGATIVE); PROTEIN,URINE NEGATIVE (NEGATIVE); UROBILINOGEN,URINE 0.2 (NORMAL) E.U./dL (NORMAL)
[2019-03-21 20:14] LABS: CLARITY,URINE CLEAR (CLEAR)
== END 2019-03-21 23:59 | disposition home or self-care (01) ==
LOC: LAB.R 07:00
PROVIDERS: ATTEND Registered Nurse
DX: R30.0 Dysuria (principal)
CPT/HCPCS: 81001; 81003; 87086

== ENCOUNTER 2019-05-05 17:33 | Emergency (ER) | payer MEDICARE ==
--- NOTE | 2019-05-05 20:15 | ED Physician Documentation ---
PD HPI ABD PAIN - Stated complaint Stated Complaint: FEMALE /ABD PX - Chief complaint Chief Complaint: Abd Pain - History obtained from History obtained from: Patient, Family - History of Present Illness Timing - onset: Other (78-year-old woman with dementia, last good BM was about 8 days ago, has had some smears in mud since then and has some on and off abdominal discomfort. 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 - Present Medications Home Medications: Ambulatory Orders Medication Instructions Recorded Confirmed Trospium Chloride 20 mg PO BID 01/09/19 QUEtiapine [SEROquel] 12.5 mg PO BID 05/05/19 05/05/19 - Allergies Allergies/Adverse Reactions: Allergies Allergy/AdvReac Type Severity Reaction Status Date / Time oxybutynin Allergy Unknown Verified 05/05/19 17:51 sertraline [From Zoloft] AdvReac Unknown Verified 05/05/19 17:51 - Social History Does the pt smoke?: No Smoking Status: Never smoker Does the pt drink ETOH?: No Does the pt have substance abuse?: No - Immunizations Immunizations are current?: Yes Immunizations: TDAP >10years/unknown - POLST Patient has POLST: No PD ED PE NORMAL - General General: No acute distress - Abdomen Abdomen: Soft, Non tender - Rectal Rectal: Other (Incontinent of liquid brown stool, soft fecal impaction, and enema was placed during exam.) - Back Back: No CVA TTP, No spinal TTP - Derm Derm: Normal color, Warm and dry - Extremities Extremities: No edema, No calf tenderness / cord - Neuro Neuro: No: Alert and oriented X 3 Verbal: Confused Results - Vitals Vitals: Vital Signs - 24 hr 05/05/19 05/05/19 17:51 19:52 Temperature 36.5 C 36.6 C Heart Rate 92 93 Respiratory 14 16 Rate Blood Pressure 146/79 H 155/78 H O2 Saturation 98 98 Oxygen O2 Source Room air PD MEDICAL DECISION MAKING - ED course ED course: 78-year-old woman who presents with signs and symptoms of a fecal impaction, she was disimpacted during exam and an enema was placed, subsequently had a very large bowel movement and feeling better. Departure - Departure Disposition: 01 Home, Self Care Clinical Impression: Fecal impaction Condition: Good Record reviewed to determine appropriate education?: Yes Instructions: ED Impaction Fecal Treated Comments: When you have your primary care physician fill out the custodial orders, some sort of house bowel program should be included. Something along the lines of stool softener daily with plenty of water, any day that she does not have a bowel movement and escalating dose of laxatives after that.
[2019-05-05] MEDS ORDERED: SALINE ENEMA 133 ML BOTTLE RC STA (20:16)
[2019-05-05 20:58] VITALS: BP 125/78
== END 2019-05-05 20:58 | disposition home or self-care (01) ==
LOC: ED 17:33
DX: K56.41 Fecal impaction (principal); F03.90 Unspecified dementia, unspecified severity, without behavioral disturbance, psychotic disturbance, mood disturbance, and anxiety
CPT/HCPCS: 99282; 99284; A9270

== ENCOUNTER 2019-08-25 06:41 | Outpatient (CLI) | payer MEDICARE ==
--- NOTE | 2019-08-25 08:34 | Ultrasound Report ---
Reason: ABD PAIN Procedure Date: 08/25/2019 Accession Number: [id number] / [id number] Procedure: US - Abdomen Complete CPT Code: Final Report FULL RESULT: EXAM: ABDOMEN ULTRASOUND EXAM DATE: 08/25/2019 08:04 AM. CLINICAL HISTORY: Abdominal pain. COMPARISON: ABDOMEN/PELVIS W/O 01/05/2019 1:24 PM ABDOMEN W/WO 06/19/2018 9:15 AM ABDOMEN/PELVIS W/O 08/22/2016 11:29 AM. TECHNIQUE: Real-time scanning was performed with static images obtained. FINDINGS: Liver: Normal in size and echotexture. The right lobe of the liver measures up to 15.1 cm. There is a simple cyst in the left lobe of the liver measuring 3.6 x 3.4 x 2.2 cm. Main portal vein flow: Hepatopetal. Gallbladder: No stones, wall thickening, or sonographic Moon's sign. There is an incidentally noted gallbladder polyp measuring 2 mm. Biliary System: Common bile duct measures 5.2 mm. No intrahepatic or extrahepatic ductal dilatation. Pancreas: Visualized portion is unremarkable. Kidneys: Right: 9.0 cm longitudinally. There is a simple cortical cyst at the superior pole measuring 1.3 x 0.9 x 1.4 cm. No imaging follow-up is recommended per consensus recommendations based on imaging criteria. No contour-deforming mass, stones, or hydronephrosis. Left: 10.4 cm longitudinally. No contour-deforming mass or stones. There is moderate dilatation of the renal pelvis and calyces. A prominent extrarenal pelvis is present. There is trace perinephric fluid. Spleen: 8.5 cm. Normal in size and echotexture. Aorta and Inferior Vena Cava: Unremarkable. Other: None. IMPRESSION: 1. Moderate dilatation of the left renal pelvis and calyces with a prominent renal pelvis, as seen on multiple prior CT exams dating back to 08/22/2016. Although this left renal collecting system dilatation is probably chronic, the presence of trace perinephric fluid raises the possibility of acute obstruction. Consider further evaluation with CT KUB to assess for ureteral stones or other distal obstruction if clinically appropriate. 2. Incidentally noted gallbladder polyp measuring 2 mm, almost certainly benign. No further workup recommended. Management above is based on recommendations outlined in an ACR White Paper: Gunnar Bello al. Managing Incidental Findings on Abdominal and Pelvic CT and MRI, Part 4: White Paper of the ACR Incidental Findings Committee II on Gallbladder and Biliary Findings. Journal of the [place] [employer] 10, 953-956 (2013). [facility]
== END 2019-08-25 06:42 | disposition home or self-care (01) ==
LOC: DI 06:41
PROVIDERS: ATTEND Nurse Practitioner Gerontology
DX: R10.9 Unspecified abdominal pain (principal)
CPT/HCPCS: 76700

== ENCOUNTER 2019-08-28 14:03 | Outpatient (CLI) | payer MEDICARE | END 2019-08-28 14:04 | disposition critical access hospital (66) | LOC: EMS 14:03 | PROVIDERS: ATTEND Surgery | DX: R41.0 Disorientation, unspecified (principal); R50.9 Fever, unspecified | CPT/HCPCS: A0425; A0429 ==

== ENCOUNTER 2019-08-28 14:20 | Inpatient (IN) | payer MEDICARE ==
[2019-08-28] MEDS ORDERED: cefTRIAXone 1 GM in SODIUM CHLORIDE 0.9% MINIBAG 100 ML IV STA (14:46)
--- NOTE | 2019-08-28 14:47 | ED Physician Documentation ---
PD HPI FEMALE - Stated complaint Stated Complaint: AMS - Chief complaint Chief Complaint: UTI - History of Present Illness Timing - onset: Other (This is a tere but confused demented 78-year-old woman who presents by ambulance from [facility] for presumed UTI. There is a report of a temperature of 100.6. A urinalysis was done 2 days ago which was positive and a urine culture is growing gram-negative rods, greater than 100,000 colony-forming units per milliliter. She also had an ultrasound which was notable for renal obstruction. 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 - Present Medications Home Medications: Ambulatory Orders Medication Instructions Recorded Confirmed Trospium Chloride 20 mg PO BID 01/09/19 QUEtiapine [SEROquel] 12.5 mg PO BID 05/05/19 05/05/19 Donepezil HCl 5 mg PO DAILY 08/28/19 08/28/19 Melatonin 5 mg PO DAILY PM 08/28/19 08/28/19 Mirtazapine 15 mg PO DAILY 08/28/19 08/28/19 - Allergies Allergies/Adverse Reactions: Allergies Allergy/AdvReac Type Severity Reaction Status Date / Time oxybutynin Allergy Unknown Verified 05/05/19 17:51 sertraline [From Zoloft] AdvReac Unknown Verified 05/05/19 17:51 - Social History Does the pt smoke?: No Smoking Status: Never smoker Does the pt drink ETOH?: No Does the pt have substance abuse?: No - Immunizations Immunizations are current?: Yes Immunizations: TDAP >10years/unknown - POLST Patient has POLST: No PD ED PE NORMAL - Vitals Vital signs reviewed: Yes - General General: Other (She is cooperative and pleasant but very demented, for example she asks me if I remember being to her.) - HEENT HEENT: PERRL, EOMI - Neck Neck: Supple, no meningeal sign, No bony TTP - Cardiac Cardiac: RRR, No murmur - Respiratory Respiratory: No respiratory distress, Clear bilaterally - Abdomen Abdomen: Non tender - Back Back: No CVA TTP, No spinal TTP - Derm Derm: Normal color, Warm and dry - Extremities Extremities: No edema, No calf tenderness / cord - Neuro Neuro: No motor deficit, No sensory deficit Results - Vitals Vitals: Vital Signs - 24 hr 08/28/19 08/28/19 08/28/19 14:27 14:42 16:33 Temperature 37.1 C 36.6 C 38.4 C H Heart Rate 95 112 H 124 H Respiratory 16 20 24 Rate Blood Pressure 105/69 179/150 H 106/89 H O2 Saturation 99 97 08/28/19 17:32 Temperature 37.2 C Heart Rate Respiratory Rate Blood Pressure O2 Saturation Oxygen O2 Source Room air - Labs Labs: Laboratory Tests 08/28/19 08/28/19 08/28/19 14:39 14:55 14:55 WBC 25.3 H RBC 4.46 Hgb 13.6 Hct 40.9 MCV 91.7 MCH 30.5 MCHC 33.3 RDW 12.9 Plt Count 241 MPV 10.0 Neut # (Auto) Not Reportable Lymph # (Auto) Not Reportable [place] # (Auto) Not Reportable Eos # (Auto) Not Reportable Baso # (Auto) Not Reportable Absolute Nucleated RBC Not Reportable Total Counted 100 Band Neuts % (Manual) 5 Abnorm Lymph % (Manual) 0 Nucleated RBC % Not Reportable Neutrophils # (Manual) 24.5 H Lymphocytes # (Manual) 0.3 L Monocytes # (Manual) 0.5 Eosinophils # (Manual) 0.0 Basophils # (Manual) 0.0 Differential Comment MANUAL DIFFERENTIAL Manual Slide Review Indicated Platelet Estimate NORMAL (130-450,000) Platelet Morphology NORMAL APPEARANCE RBC Morph Micro Appear NORMAL APPEARANCE Sodium 130 L Potassium 3.5 Chloride 94 L Carbon Dioxide 25 Anion Gap 11.0 BUN 49 H Creatinine 1.7 H Estimated GFR (MDRD) 29 L Glucose 117 H Lactic Acid Calcium 9.7 Total Bilirubin 1.5 H AST 26 ALT 30 Alkaline Phosphatase 118 Total Protein 6.0 L Albumin 3.0 L Globulin 3.0 Albumin/Globulin Ratio 1.0 Lipase 31 Urine Color YELLOW Urine Clarity HAZY Urine pH 5.5 Ur Specific [place] 1.015 Urine Protein 30 H Urine Glucose (UA) NEGATIVE Urine Ketones NEGATIVE Urine Occult Blood TRACE-INTA Urine Nitrite NEGATIVE Urine Bilirubin NEGATIVE Urine Urobilinogen 1 (NORMAL) Ur Leukocyte Esterase NEGATIVE Urine RBC 0-5 Urine WBC 0-3 Ur Squamous Epith Cells RARE Squamous Amorphous Sediment Few Urine Bacteria Rare Ur Microscopic Review INDICATED Urine Culture Comments NOT INDICATED 08/28/19 14:55 WBC RBC Hgb Hct MCV MCH MCHC RDW Plt Count MPV Neut # (Auto) Lymph # (Auto) [place] # (Auto) Eos # (Auto) Baso # (Auto) Absolute Nucleated RBC Total Counted Band Neuts % (Manual) Abnorm Lymph % (Manual) Nucleated RBC % Neutrophils # (Manual) Lymphocytes # (Manual) Monocytes # (Manual) Eosinophils # (Manual) Basophils # (Manual) Differential Comment Manual Slide Review Platelet Estimate Platelet Morphology RBC Morph Micro Appear Sodium Potassium Chloride Carbon Dioxide Anion Gap BUN Creatinine Estimated GFR (MDRD) Glucose Lactic Acid 1.7 Calcium Total Bilirubin AST ALT Alkaline Phosphatase Total Protein Albumin Globulin Albumin/Globulin Ratio Lipase Urine Color Urine Clarity Urine pH Ur Specific [place] Urine Protein Urine Glucose (UA) Urine Ketones Urine Occult Blood Urine Nitrite Urine Bilirubin Urine Urobilinogen Ur Leukocyte Esterase Urine RBC Urine WBC Ur Squamous Epith Cells Amorphous Sediment Urine Bacteria Ur Microscopic Review Urine Culture Comments PD MEDICAL DECISION MAKING - ED course ED course: This is an 78-year-old woman who presents febrile and tachycardic with a known UTI. Culture is pending. She has a longstanding obstruction of the left kidney and this was imaged again today which showed worsening. This was discussed by phone with the patient's daughter Yesenia and Bang, the patient's . They both agree that the patient would not want to be transferred at this juncture for potential surgical procedure given her frail state and advanced dementia and prefer a trial of IV antibiotics only. Departure - Departure Disposition: [facility] DC/Xfer Clinical Impression: DNR (do not resuscitate) UTI (urinary tract infection) Qualifiers: Urinary tract infection type: acute pyelonephritis Qualified Code(s): N10 - Acute pyelonephritis Sepsis Qualifiers: Sepsis type: sepsis due to unspecified organism Sepsis acute organ dysfunction status: with acute organ dysfunction Severe sepsis acute organ dysfunction type: acute renal failure Acute renal failure type: unspecified Severe sepsis shock status: without septic shock Qualified Code(s): A41.9 - Sepsis, unspecified organism; R65.20 - Severe sepsis without septic shock; N17.9 - Acute kidney failure, unspecified Condition: Serious
[2019-08-28 14:50] LABS: BILIRUBIN,URINE NEGATIVE (NEGATIVE); GLUCOSE, URINE (UA) NEGATIVE (NEGATIVE); KETONES,URINE (UA) NEGATIVE (NEGATIVE); LEUKOCYTE ESTERASE, URINE NEGATIVE (NEGATIVE); NITRITE,URINE NEGATIVE (NEGATIVE); OCCULT BLOOD,URINE TRACE-INTA (NEGATIVE); PH,URINE 5.5 PH (5.0-7.5); PROTEIN,URINE 30 mg/dL (NEGATIVE); UROBILINOGEN,URINE 1 (NORMAL) E.U./dL (NORMAL)
[2019-08-28 15:04] LABS: CLARITY,URINE HAZY (CLEAR)
[2019-08-28 15:05] LABS: BASOPHILS % (AUTO) 0.5 %; EOSINOPHILS % (AUTO) 0.2 %; HGB - HEMOGLOBIN 13.6 g/dL (12.0-16.0); LYMPHOCYTES % (AUTO) 1.2 %; MEAN CORPUSCULAR HEMOGLOBIN 30.5 pg (27.0-31.0); MEAN CORPUSCULAR HGB CONC 33.3 g/dL (32.0-36.0); MEAN CORPUSCULAR VOLUME 91.7 fL (81.0-99.0); MONOCYTES % (AUTO) 3.6 %; NEUTROPHILS % (AUTO) 91.2 %; PLT - PLATELET COUNT 241 10^3/uL (130-450); RED BLOOD COUNT 4.46 10^6/uL (4.20-5.40); RED CELL DISTRIBUTION WIDTH 12.9 % (12.0-15.0); WHITE BLOOD COUNT 25.3 x10^3/uL (4.8-10.8)
[2019-08-28 15:05] LABS: AMORPHOUS SEDIMENT,UR Few /LPF; BACTERIA,URINE Rare /HPF (None Seen); RBC,URINE 0-5 /HPF (0-5); SQUAMOUS EPITHELIAL CELL,UR RARE Squamous (<= Few)
[2019-08-28] MEDS ORDERED: IOVERSOL 320 100 ML VIAL IVP ONE (15:18)
[2019-08-28 15:24] LABS: ABNORMAL LYMPHS % (MANUAL) 0 %
[2019-08-28 15:29] LABS: BILIRUBIN,TOTAL 1.5 mg/dL (0.2-1.0); CALCIUM 9.7 mg/dL (8.5-10.3); CREATININE 1.7 mg/dL (0.4-1.0)
[2019-08-28 15:37] LABS: BAND NEUTROPHILS % (MANUAL) 5 %; LYMPHOCYTES # (MANUAL) 0.3 10^3/uL (1.5-3.5); LYMPHOCYTES % (MANUAL) 1 %; MONOCYTES # (MANUAL) 0.5 10^3/uL (0.0-1.0); PLATELET MORPHOLOGY NORMAL APPEARANCE (NORMAL); RBC MORPHOLOGY (MULTIPLE) NORMAL APPEARANCE (NORMAL)
[2019-08-28 15:38] LABS: DIFFERENTIAL COMMENT MANUAL DIFFERENTIAL; PLATELET ESTIMATE, MANUAL NORMAL (130-450,000) (NORMAL)
[2019-08-28] MEDS ORDERED: SODIUM CHLORIDE 0.9% 1,000 ML IV ONE (16:04)
[2019-08-28] MEDS ORDERED: ACETAMINOPHEN 325 MG TABLET PO STA (16:46)
--- NOTE | 2019-08-28 17:22 | CT Report ---
Reason: UTI c obstruction Procedure Date: 08/28/2019 Accession Number: [id number] / [id number] Procedure: CT - Abdomen/Pelvis WO CPT Code: Final Report FULL RESULT: EXAM: CT ABDOMEN AND PELVIS (CT KUB) EXAM DATE: 08/28/2019 04:57 PM. CLINICAL HISTORY: UTI with obstruction. COMPARISONS: ABDOMEN/PELVIS W/O 01/05/2019 1:24 PM ABDOMEN/PELVIS W/O 08/22/2016 11:29 AM. TECHNIQUE: Routine axial helical CT imaging was performed through the abdomen and pelvis without IV contrast. Reconstructions: Coronal and sagittal. In accordance with CT protocol optimization, one or more of the following dose reduction techniques were utilized for this exam: automated exposure control, adjustment of mA and/or KV based on patient size, or use of iterative reconstructive technique. FINDINGS: Lung Bases: Trace bilateral pleural effusions versus basilar dependent atelectasis. Right Kidney/Ureter: Visualization significantly limited by motion artifact. There is a hyperdense cortical lesion in the lateral midpole with a density of 87 Hounsfield units which measures 12 mm in diameter. Unchanged. No visualized right kidney stone or hydronephrosis. The right ureter is not visible secondary to motion. Left Kidney/Ureter: There is moderate to severe pelvicaliectasis of the left kidney with new fat stranding or fluid surrounding the left kidney. No visualized kidney stone. Limited visualization of the left kidney and ureter secondary to motion artifact. There are multiple calcifications in the abdomen and pelvis which appear without gross change. Other Solid Organs: There is a cyst in the left lobe of the liver. The liver and spleen appear normal in size. The pancreas is poorly visualized. No definite calcified gallstones. Gallbladder/Bile Ducts: Unremarkable Peritoneal Cavity: No free air identified. Limited visualization of bowel secondary to motion. Pelvic Organs: Pelvis not well seen secondary to motion. Vasculature: No visualized abdominal aortic aneurysm. Other: None. IMPRESSION: 1. Increased hydronephrosis of the left kidney with moderate to severe pelvicaliectasis. New left perinephric inflammatory changes or fluid. Characterization is significantly limited by motion artifact. Suspicious for worsening obstruction of indeterminate etiology. Probable pyelonephritis. The left ureter is not seen. 2. Hyperdense right renal lesion, probable hyperdense cyst without interval change. RADIA
--- NOTE | 2019-08-28 19:15 | HISTORY & PHYSICAL EXAMINATION ---
Chief Complaint - Chief Complaint Chief Complaint: altered mental status History of Present Illness - Admitted From Admitted From:: [facility] ED - History Obtained From Records Reviewed: yes History obtained from: ED physician and chart Exam Limitations: Dementia - History of Present Illness HPI Comment/Other: This HPI is obtained from the HPI of the ED H&P. An HPI could not be obtained from the patient because she has dementia thus she is not a good historian. This is a tere but confused demented 78-year-old woman who presents by ambulance from [facility] for presumed UTI. There is a report of a temperature of 100.6. A urinalysis was done 2 days ago which was positive and a urine culture is growing gram-negative rods, greater than 100,000 colony-forming units per milliliter. She also had an ultrasound which was notable for renal obstruction. The patient is unable to give any history due to dementia. Despite dementia it is reported that she was more obtunded than her baseline. In the ED she was found to have a white blood cell count of 25.She also had a temperature of 38.4 C. Her creatinine was 1.7 which is doubled from her baseline. CT scan of the abdomen/pelvis done showed increased hydronephrosis of the left kidney with moderate to severe pelvicaliectasis.. There was also new left perinephric inflammatory changes of fluid. 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 Social History Notes: Could not be obtained at this time because the patient is a poor historian due to dementia. She presents from [facility] dementia unit. - POLST Patient has POLST: No POLST Status: DNR Meds/Allgy - Home Medications Home Medications: Ambulatory Orders Medication Instructions Recorded Confirmed Trospium Chloride 20 mg PO BID 01/09/19 QUEtiapine [SEROquel] 12.5 mg PO BID 05/05/19 05/05/19 Donepezil HCl 5 mg PO DAILY 08/28/19 08/28/19 Melatonin 5 mg PO DAILY PM 08/28/19 08/28/19 Mirtazapine 15 mg PO DAILY 08/28/19 08/28/19 - Allergies Allergies/Adverse Reactions: Allergies Allergy/AdvReac Type Severity Reaction Status Date / Time oxybutynin Allergy Unknown Verified 05/05/19 17:51 sertraline [From Zoloft] AdvReac Unknown Verified 05/05/19 17:51 Review of Systems - Other Findings Other Findings: Review of system is limited because patient has dementia and is a poor historian Prior Level of Functionality: Patient resides at [facility] dementia unit Exam - Vital Signs Vital Signs: Vital Signs x48h Temp Pulse Resp BP Pulse Ox 08/28/19 17:32 37.2 C 08/28/19 16:33 38.4 C H 124 H 24 106/89 H 08/28/19 14:42 36.6 C 112 H 20 179/150 H 97 08/28/19 14:27 37.1 C 95 16 105/69 99 - Physical Exam General Appearance: positive: No acute distress, Alert Eyes Bilateral: positive: PERRL, EOMI ENT: positive: Dry mucous membranes Neck: positive: No JVD, Trachea midline Respiratory: positive: Chest non-tender, No respiratory distress, Breath sounds nml. negative: Wheezes, Rales, Rhonchi Cardiovascular: positive: Regular rate & rhythm Abdomen: positive: Non-tender, No organomegaly, Nml bowel sounds, No distention. negative: Guarding, Rebound Back: positive: Nml inspection Skin: positive: Color nml, No rash, Warm, Dry Extremities: positive: Non-tender, Full ROM, Nml appearance, No pedal edema Neurologic/Psychiatric: positive: Mood/affect nml, Disoriented to place, Disoriented to time Conclusion/Plan - Problem List (1) Sepsis Conclusion/Plan: Secondary to pyelonephritis. Urine and blood cultures were drawn. Patient was started on Rocephin 1 g daily. Tylenol PRN for fever. Qualifiers: Sepsis type: sepsis due to unspecified organism Sepsis acute organ dysfunction status: with acute organ dysfunction Severe sepsis acute organ dysfunction type: acute renal failure Acute renal failure type: unspecified Severe sepsis shock status: without septic shock Qualified Code(s): A41.9 - Sepsis, unspecified organism; R65.20 - Severe sepsis without septic shock; N17.9 - Acute kidney failure, unspecified (2) Pyelonephritis Conclusion/Plan: WBC was 25. Temperature 38.4 C. Patient started on Rocephin 1 g daily. Blood cultures obtained. Tylenol PRN for fever. Patient receiving hydration with normal saline at 100 mils per hour. (3) DUC (acute kidney injury) Conclusion/Plan: Possibly multifactorial. Secondary to Pyelonephritis and right renal obstruction. Patient is on Rocephin 1 g IV daily. Hydronephrosis noted on in the right kidney CT scan of the abd/pelvis. Family has opted not to have patient transferred for obstruction to be directly addressed. We will continue to treat infection and see if the renal function improves. If not we will have further discussion with the family. (4) Dementia Conclusion/Plan: On Donepezil 5 mg p.o. daily and Seroquel 12.5 mg p.o. twice daily Qualifiers: Dementia type: Alzheimer's disease Alzheimer's disease onset: unspecified onset Dementia behavioral disturbance: with behavioral disturbance Qualified Code(s): G30.9 - Alzheimer's disease, unspecified; F02.81 - Dementia in other diseases classified elsewhere with behavioral disturbance (5) Depression Conclusion/Plan: On remeron - Lab Results Fish Bones: 08/29/19 05:25 08/29/19 05:25 Core Measures - Anticipated LOS I expect patient to be DC'd or transferred within 96 hours.: Yes - DVT/VTE - Prophylaxis VTE/DVT Device ordered at admit?: Yes
[2019-08-28] MEDS ORDERED: ACETAMINOPHEN 325 MG TABLET PO PRN (19:34)
[2019-08-28] MEDS: SODIUM CHLORIDE 0.9% 1,000 ML IV SCH (20:55)
[2019-08-28] MEDS: DONEPEZIL 5 MG TABLET PO SCH (22:36)
[2019-08-28] MEDS: QUEtiapine 25 MG TABLET PO SCH (22:38)
[2019-08-29] MEDS: SODIUM CHLORIDE FLUSH 0.9% 10 ML SYRINGE IVP SCH ×3 (03:50→17:32)
[2019-08-29 06:00] LABS: BASOPHILS # (AUTO) 0.1 10^3/uL (0.0-0.1); BASOPHILS % (AUTO) 0.4 %; HGB - HEMOGLOBIN 12.1 g/dL (12.0-16.0); LYMPHOCYTES # (AUTO) 0.3 10^3/uL (1.5-3.5); LYMPHOCYTES % (AUTO) 1.4 %; MEAN CORPUSCULAR HEMOGLOBIN 29.8 pg (27.0-31.0); MEAN CORPUSCULAR HGB CONC 32.9 g/dL (32.0-36.0); MEAN CORPUSCULAR VOLUME 90.6 fL (81.0-99.0); MEAN PLATELET VOLUME 10.4 fL (7.9-10.8); MONOCYTES % (AUTO) 4.8 %; NEUTROPHILS # (AUTO) 18.8 10^3/uL (1.5-6.6); PLT - PLATELET COUNT 212 10^3/uL (130-450); RED BLOOD COUNT 4.06 10^6/uL (4.20-5.40); RED CELL DISTRIBUTION WIDTH 12.9 % (12.0-15.0); WHITE BLOOD COUNT 20.7 x10^3/uL (4.8-10.8)
[2019-08-29 06:02] LABS: CALCIUM 9.4 mg/dL (8.5-10.3); CREATININE 1.4 mg/dL (0.4-1.0)
[2019-08-29 06:19] LABS: PLATELET ESTIMATE, MANUAL NORMAL (130-450,000) (NORMAL); PLATELET MORPHOLOGY NORMAL APPEARANCE (NORMAL); RBC MORPHOLOGY (MULTIPLE) NORMAL APPEARANCE (NORMAL)
[2019-08-29] MEDS: SODIUM CHLORIDE 0.9% 1,000 ML IV SCH ×4 (06:29→22:59)
[2019-08-29] MEDS ORDERED: PANTOPRAZOLE 40 MG TABLET PO SCH (07:00)
[2019-08-29] MEDS: QUEtiapine 25 MG TABLET PO SCH ×2 (08:29→21:33)
[2019-08-29] MEDS: POTASSIUM CHLOR 10 MEQ/100 ML 10 MEQ/100 ML BAG IV SCH ×6 (08:30→14:28)
[2019-08-29] MEDS: cefTRIAXone 1 GM in SODIUM CHLORIDE 0.9% MINIBAG 100 ML IV SCH (09:45)
--- NOTE | 2019-08-29 10:58 | PROVIDER PROGRESS NOTE ---
Assessment/Plan - Problem List (1) Sepsis Qualifiers: Sepsis acute organ dysfunction status: with acute organ dysfunction Severe sepsis acute organ dysfunction type: acute renal failure Acute renal failure type: unspecified Severe sepsis shock status: without septic shock Assessment/Plan: Patient developed rigors and her fever went up again. At this time she was even more confused, talking to the ceiling incessantly. We will give IV Ofirmev for fever, she cannot swallow in this current condition (cannot follow commands). Continue to treat the underlying infection. Continue with IV fluids (2) E. coli bacteremia Assessment/Plan: The blood culture has not returned positive and has already been identified as E. coli. Continue with IV ceftriaxone which is empiric treatment, awaiting final sensitivities. Because she is bacteremic, a repeat set of cultures will be done to assure that they are negative. She also needs an Echo to evaluate for endocarditis. This will determine how long her IV antibiotics are required. (3) DUC (acute kidney injury) Assessment/Plan: Improved from 49/1 0.7-40 7/1.4. Continue with IV hydration. Follow-up BMP daily (4) Pyelonephritis Assessment/Plan: Imaging showed kidney involvement. Continue with IV antibiotics. Follow BUN/creat daily. (5) Hydronephrosis Assessment/Plan: It appears that she has an obstruction on the side of where she already had a bad kidney. The family wants no urologic intervention. They are aware that this may cause significant renal failure, it was discussed by the ER doctor with a child and the patient's . They just want just IV fluids and IV antibiotics and to see what would happen. (6) Dementia Qualifiers: Dementia type: Alzheimer's disease Alzheimer's disease onset: unspecified onset Dementia behavioral disturbance: with behavioral disturbance Qualified Code(s): G30.9 - Alzheimer's disease, unspecified; F02.81 - Dementia in other diseases classified elsewhere with behavioral disturbance Assessment/Plan: Yesterday she hadDoes not confusion. Today she seems delirious, related to the fever. (7) Depression Assessment/Plan: Continue with home p.o. meds, when she can swallow - Current Meds Current Meds: Current Medications Generic Name Dose Route Start Last Admin Trade Name Freq PRN Reason Stop Dose Admin Donepezil HCl 5 mg 08/28/19 21:36 08/28/19 22:36 Aricept PO 5 mg QPM EVELINE Administration Ceftriaxone Sodium 1 gm/ 100 mls @ 200 mls/hr 08/29/19 09:00 08/29/19 10:24 Sodium Chloride IV Infused DAILY EVELINE Infusion Sodium Chloride 1,000 mls @ 125 mls/hr 08/29/19 07:07 08/29/19 08:23 Normal Saline 0.9% IV Not Given .Q8H EVELINE Potassium Chloride 10 meq in 100 mls @ 100 mls/hr 08/29/19 08:00 08/29/19 10:49 Potassium Chloride IV 08/29/19 13:59 100 mls/hr Q1H EVELINE Administration Pantoprazole Sodium 40 mg 08/29/19 07:00 08/29/19 06:43 Protonix PO 40 mg QDAC EVELINE Administration Quetiapine Fumarate 12.5 mg 08/28/19 22:00 08/29/19 08:29 Seroquel PO 12.5 mg BID EVELINE Administration Sodium Chloride 10 ml 08/29/19 01:00 08/29/19 08:33 Normal Saline Flush 0.9% IVP 10 ml 0100,0900,1700 EVELINE Administration - Lab Result Fish Bone Diagrams: 08/29/19 05:25 08/29/19 05:25 - Additional Planning My Orders: My Active Orders 08/28/19 18:21 Activity Orders [RC] DAILY Code Status [OTHERS] Routine 08/28/19 Dinner DIET [Dysphagia Puree Diet] [DIET] Subjective - Subjective Patient Reports: Other (Pleasant but disoriented, able to feed herself breakfast, Then in the afternoon she was delirious, talking to the ceiling, reaching out with her arms ahead of her.) Objective Vital Signs: Vital Signs - 24 hr 08/28/19 08/28/19 08/28/19 14:27 14:42 16:33 Temperature 37.1 C 36.6 C 38.4 C H Heart Rate 95 112 H 124 H Heart Rate [ Brachial] Respiratory 16 20 24 Rate Blood Pressure 105/69 179/150 H 106/89 H Blood Pressure [Right Brachial artery] O2 Saturation 99 97 08/28/19 08/28/19 08/29/19 17:32 20:40 00:00 Temperature 37.2 C 37.0 C 36.6 C Heart Rate Heart Rate [ 111 H 80 Brachial] Respiratory 18 18 Rate Blood Pressure Blood Pressure 91/47 L 118/98 H [Right Brachial artery] O2 Saturation 92 96 08/29/19 08/29/19 08:05 08:53 Temperature 36.6 C 36.6 C Heart Rate 92 Heart Rate [ 92 Brachial] Respiratory 18 18 Rate Blood Pressure Blood Pressure 103/56 L [Right Brachial artery] O2 Saturation 94 94 Oxygen O2 Source Room air I&O (Last 24 Hrs): Intake and Output Totals x24h 08/27/19 08/28/19 08/29/19 23:59 23:59 23:59 Intake Total 1100 2079 Output Total 100 Balance 1100 1979 General: Alert HEENT: EOMI (Sunken eyes), Other (Dry mucosa, poor dental hygiene.) Neck: Supple Neuro: Disoriented, Other (Moves all extremities spontaneously. Is currently delirious) Cardiovascular: No murmurs Respiratory: No respiratory distress Abdomen: Soft Extremities: No edema, Other (Positive skin tenting.) - Results Results: Laboratory Results WBC 20.7 x10^3/uL (4.8-10.8) H 08/29/19 05:25 RBC 4.06 10^6/uL (4.20-5.40) L 08/29/19 05:25 Hgb 12.1 g/dL (12.0-16.0) 08/29/19 05:25 Hct 36.8 % (37.0-47.0) L 08/29/19 05:25 MCV 90.6 fL (81.0-99.0) 08/29/19 05:25 MCH 29.8 pg (27.0-31.0) 08/29/19 05:25 MCHC 32.9 g/dL (32.0-36.0) 08/29/19 05:25 RDW 12.9 % (12.0-15.0) 08/29/19 05:25 Plt Count 212 10^3/uL (130-450) 08/29/19 05:25 MPV 10.4 fL (7.9-10.8) 08/29/19 05:25 Neut # (Auto) 18.8 10^3/uL (1.5-6.6) H 08/29/19 05:25 Lymph # (Auto) 0.3 10^3/uL (1.5-3.5) L 08/29/19 05:25 [place] # (Auto) 1.0 10^3/uL (0.0-1.0) 08/29/19 05:25 Eos # (Auto) 0.0 10^3/uL (0.0-0.7) 08/29/19 05:25 Baso # (Auto) 0.1 10^3/uL (0.0-0.1) 08/29/19 05:25 Absolute Nucleated RBC 0.00 x10^3/uL 08/29/19 05:25 Total Counted 100 08/28/19 14:55 Band Neuts % (Manual) 5 % (0-10) 08/28/19 14:55 Abnorm Lymph % (Manual) 0 % 08/28/19 14:55 Nucleated RBC % 0.0 /100WBC 08/29/19 05:25 Neutrophils # (Manual) 24.5 10^3/uL (1.5-6.6) H 08/28/19 14:55 Lymphocytes # (Manual) 0.3 10^3/uL (1.5-3.5) L 08/28/19 14:55 Monocytes # (Manual) 0.5 10^3/uL (0.0-1.0) 08/28/19 14:55 Eosinophils # (Manual) 0.0 10^3/uL (0-0.7) 08/28/19 14:55 Basophils # (Manual) 0.0 10^3/uL (0-0.1) 08/28/19 14:55 Differential Comment MANUAL DIFFERENTIAL 08/28/19 14:55 Manual Slide Review Indicated 08/29/19 05:25 Platelet Estimate NORMAL (130-450,000) (NORMAL) 08/29/19 05:25 Platelet Morphology NORMAL APPEARANCE (NORMAL) 08/29/19 05:25 RBC Morph Micro Appear NORMAL APPEARANCE (NORMAL) 08/29/19 05:25 Sodium 136 mmol/L (135-145) 08/29/19 05:25 Potassium 2.9 mmol/L (3.5-5.0) L 08/29/19 05:25 Chloride 103 mmol/L (101-111) 08/29/19 05:25 Carbon Dioxide 24 mmol/L (21-32) 08/29/19 05:25 Anion Gap 9.0 (6-13) 08/29/19 05:25 BUN 47 mg/dL (6-20) H 08/29/19 05:25 Creatinine 1.4 mg/dL (0.4-1.0) H 08/29/19 05:25 Estimated GFR (MDRD) 36 (>89) L 08/29/19 05:25 Glucose 128 mg/dL (70-100) H 08/29/19 05:25 Lactic Acid 1.7 mmol/L (0.5-2.2) 08/28/19 14:55 Calcium 9.4 mg/dL (8.5-10.3) 08/29/19 05:25 Magnesium 2.2 mg/dL (1.7-2.8) 08/29/19 05:25 Total Bilirubin 1.5 mg/dL (0.2-1.0) H 08/28/19 14:55 AST 26 IU/L (10-42) 08/28/19 14:55 ALT 30 IU/L (10-60) 08/28/19 14:55 Alkaline Phosphatase 118 IU/L (42-121) 08/28/19 14:55 Total Protein 6.0 g/dL (6.7-8.2) L 08/28/19 14:55 Albumin 3.0 g/dL (3.2-5.5) L 08/28/19 14:55 Globulin 3.0 g/dL (2.1-4.2) 08/28/19 14:55 Albumin/Globulin Ratio 1.0 (1.0-2.2) 08/28/19 14:55 Lipase 31 U/L (22-51) 08/28/19 14:55 Urine Color YELLOW 08/28/19 14:39 Urine Clarity HAZY (CLEAR) 08/28/19 14:39 Urine pH 5.5 PH (5.0-7.5) 08/28/19 14:39 Ur Specific [place] 1.015 (1.002-1.030) 08/28/19 14:39 Urine Protein 30 mg/dL (NEGATIVE) H 08/28/19 14:39 Urine Glucose (UA) NEGATIVE mg/dL (NEGATIVE) 08/28/19 14:39 Urine Ketones NEGATIVE mg/dL (NEGATIVE) 08/28/19 14:39 Urine Occult Blood TRACE-INTA (NEGATIVE) 08/28/19 14:39 Urine Nitrite NEGATIVE (NEGATIVE) 08/28/19 14:39 Urine Bilirubin NEGATIVE (NEGATIVE) 08/28/19 14:39 Urine Urobilinogen 1 (NORMAL) E.U./dL (NORMAL) 08/28/19 14:39 Ur Leukocyte Esterase NEGATIVE (NEGATIVE) 08/28/19 14:39 Urine RBC 0-5 /HPF (0-5) 08/28/19 14:39 Urine WBC 0-3 /HPF (0-5) 08/28/19 14:39 Ur Squamous Epith Cells RARE Squamous (<= Few) 08/28/19 14:39 Amorphous Sediment Few /LPF 08/28/19 14:39 Urine Bacteria Rare /HPF (None Seen) 08/28/19 14:39 Ur Microscopic Review INDICATED 08/28/19 14:39 Urine Culture Comments NOT INDICATED 08/28/19 14:39
--- NOTE | 2019-08-29 11:39 | PHARMACY PROGRESS NOTE ---
- Best Possible Medication History Admit Date and Time: 08/28/191818 Processed by: Pharmacy Medication History completed: Yes Patient Interview: Pt unable to participate Secondary Source(s): Pharmacy records, Insurance records, Facility MAR as ONLY source As the person ultimately responsible for medication therapy, providers are able to order a medication from an existing home medication list in [facility] via the "Reconcile Routine" prior to Confirmation of that medication by security support analyst. Such practice is discouraged except when the physician, in their clinical judgment, deems that a medical need exists for a medication without regard to previous use.
[2019-08-29] MEDS: MULTIVITAMIN W/MINERALS TABLET PO SCH (14:27)
[2019-08-29] MEDS ORDERED: OLANZapine 10 MG VIAL IM SCH (17:09)
[2019-08-29] MEDS ORDERED: ACETAMINOPHEN 1,000 MG/100 ML 100 ML IV PRN (17:10)
[2019-08-29] MEDS: DONEPEZIL 5 MG TABLET PO SCH (21:33)
[2019-08-30] MEDS: SODIUM CHLORIDE FLUSH 0.9% 10 ML SYRINGE IVP SCH ×3 (02:06→17:08)
[2019-08-30 06:26] LABS: BASOPHILS # (AUTO) 0.2 10^3/uL (0.0-0.1); BASOPHILS % (AUTO) 0.7 %; HGB - HEMOGLOBIN 11.4 g/dL (12.0-16.0); LYMPHOCYTES # (AUTO) 0.4 10^3/uL (1.5-3.5); LYMPHOCYTES % (AUTO) 1.8 %; MEAN CORPUSCULAR HEMOGLOBIN 30.3 pg (27.0-31.0); MEAN CORPUSCULAR HGB CONC 32.6 g/dL (32.0-36.0); MEAN CORPUSCULAR VOLUME 93.1 fL (81.0-99.0); MEAN PLATELET VOLUME 10.9 fL (7.9-10.8); MONOCYTES # (AUTO) 1.1 10^3/uL (0.0-1.0); NEUTROPHILS # (AUTO) 20.8 10^3/uL (1.5-6.6); NEUTROPHILS % (AUTO) 91.7 %; PLT - PLATELET COUNT 164 10^3/uL (130-450); RED BLOOD COUNT 3.76 10^6/uL (4.20-5.40); RED CELL DISTRIBUTION WIDTH 13.2 % (12.0-15.0); WHITE BLOOD COUNT 22.7 x10^3/uL (4.8-10.8)
[2019-08-30 06:36] LABS: CREATININE 1.2 mg/dL (0.4-1.0)
[2019-08-30] MEDS: cefTRIAXone 1 GM in SODIUM CHLORIDE 0.9% MINIBAG 100 ML IV SCH (06:41)
[2019-08-30] MEDS: SODIUM CHLORIDE 0.9% 1,000 ML IV SCH ×2 (06:41→14:38)
[2019-08-30] MEDS: QUEtiapine 25 MG TABLET PO SCH ×2 (06:49→21:52)
[2019-08-30 07:03] LABS: RBC MORPHOLOGY (MULTIPLE) 2+ ANISOCYTOSIS (NORMAL)
[2019-08-30] MEDS ORDERED: SODIUM CHLORIDE 0.9% 1,000 ML IV SCH (08:35)
[2019-08-30] MEDS ORDERED: cefTRIAXone 2 GM in SODIUM CHLORIDE 0.9% MINIBAG 100 ML IV SCH (09:00)
[2019-08-30] MEDS ORDERED: cefTRIAXone 1 GM in SODIUM CHLORIDE 0.9% MINIBAG 100 ML IV ONE (09:00)
--- NOTE | 2019-08-30 09:14 | XRAY Report ---
Reason: sob Procedure Date: 08/30/2019 Accession Number: [id number] / [id number] Procedure: XR - Chest 1 View X-Ray CPT Code: 79493 Final Report FULL RESULT: EXAM: CHEST RADIOGRAPHY EXAM DATE: 08/30/2019 08:51 AM. CLINICAL HISTORY: Sob. COMPARISON: CHEST 1 VIEW 01/09/2019 6:21 PM. TECHNIQUE: 1 view. FINDINGS: Lungs/Pleura: Consolidation in the left infrahilar station with silhouetting of left hemidiaphragm. Mediastinum: Within exam limitations, the cardiomediastinal contour is normal. Other: None. IMPRESSION: Left lower lobe airspace disease. RADIA
[2019-08-30] MEDS: MULTIVITAMIN W/MINERALS TABLET PO SCH (09:36)
--- NOTE | 2019-08-30 11:04 | Ultrasound Report ---
Reason: obstructed hydrenephosis? Procedure Date: 08/30/2019 Accession Number: [id number] / [id number] Procedure: US - Retroperitoneal Limited CPT Code: Final Report FULL RESULT: EXAM: LIMITED RENAL ULTRASOUND EXAM DATE: 08/30/2019 10:50 AM. CLINICAL HISTORY: Obstructed hydronephrosis?. COMPARISON: ABDOMEN/PELVIS W/O 08/28/2019 4:50 PM ABDOMEN COMPLETE 08/25/2019 7:22 AM. TECHNIQUE: Real-time scanning was performed with static images obtained. FINDINGS: Right Kidney: Not evaluated. Left Kidney: 12.6 x 7.7 x 7 cm. Marked left hydronephrosis is noted. Debris is present in the left renal pelvis. No definite focal mass or stone. Possible debris is noted in the proximal left ureter. Bladder: Not evaluated. Other: Small left pleural effusion is present. Study is limited due to difficulty in positioning the patient appropriately. IMPRESSION: 1. Marked left hydronephrosis. Debris is present in the left renal pelvis. Concentrated urine, infection and blood can have a similar appearance. RADIA
[2019-08-30] MEDS: SACCHAROMYCES BOULARDII 250 MG CAPSULE PO SCH ×3 (12:51→17:40)
[2019-08-30] MEDS: AZITHROMYCIN INJ 500 MG in SODIUM CHLORIDE 0.9% 250 ML IV SCH (12:51)
--- NOTE | 2019-08-30 13:32 | PROVIDER PROGRESS NOTE ---
Assessment/Plan - Problem List (1) Pneumonia Assessment/Plan: Patient still has lower degree fever, and required 4 liter of O2 at morning. WBC is still at 22. order CXR which reveals left lower airspace degree. add Azithyromycin, continue Rocephin, and test Covid-19 test. continue supplement of O2 as needed (2)systolic heart failure electrocardiographic technician report pt has 35% EF, we are waiting ECHO reading. will check BNP. start on lower dosage metoprolol, pt's BP is at slight lower side. reduced IVF to 75cc/h, nurse report pt has very poor oral drink and poor oral eating. (3) Sepsis pt still present lower degree. pt has bacteremia with Ecoli infection, now plus pneumonia. continue antibiotics, and gently IVF. order blood culture again to make sure pt has no more bacteremia. (4) E. coli bacteremia Assessment/Plan: The blood culture both tube had already been identified as E. coli.bacteremia Continue with IV ceftriaxone which is empiric treatment, awaiting final sensitivities. Because she is bacteremic, a repeat set of cultures will be done to assure that they are negative. order today She also needs an Echo to evaluate for endocarditis. per electrocardiographic technician report it is not likely endocarditis. Staph aureus is the most infection and trouble bacterial to cause endocarditis. pt's bacteremia is Ecoli. (5) DUC (acute kidney injury) Assessment/Plan: Improved from 49/1 0.7-40 7/1.4. Continue with IV hydration, slight reduced IVF rate because of heart failure. Follow-up BMP daily (6) Pyelonephritis Assessment/Plan: Imaging showed kidney involvement. repeated US of kidney reveals likely marked left hydronephrosis, infection has the similar appearance. Continue with IV antibiotics. Follow BUN/creat daily. kidney function is improved now. (7) Hydronephrosis Assessment/Plan: family did not want to have urologic intervention per ER doctor discussed with pt's family. continue antibiotics, and IVF (8) advanced Dementia pt is still very confused today, will treat underline acute infection, closely monitor pt (9) Depression Assessment/Plan: stable. Continue with home p.o. meds (10)anorexia nurse continue feeding pt, but pt only ate a few bites. we will discuss with pt's family for advance care if pt continue anorexia. - Current Meds Current Meds: Current Medications Generic Name Dose Route Start Last Admin Trade Name Freq PRN Reason Stop Dose Admin Donepezil HCl 5 mg 08/28/19 21:36 08/29/19 21:33 Aricept PO 5 mg QPM EVELINE Administration Acetaminophen 100 mls @ 400 mls/hr 08/29/19 17:10 08/29/19 17:43 Ofirmev IV Infused Q6HR PRN Infusion PER PHYSICIAN ORDER Sodium Chloride 1,000 mls @ 100 mls/hr 08/30/19 08:35 08/30/19 09:33 Normal Saline 0.9% IV 08/31/19 04:34 100 mls/hr .Q10H EVELINE Administration Azithromycin 500 mg/ Sodium 250 mls @ 250 mls/hr 08/30/19 12:00 08/30/19 1 2:51 Chloride IV 250 mls/hr Q24H EVELINE Administration Multivitamins/Minerals 1 tab 08/29/19 14:00 08/30/19 09:36 Theragran M PO Not Given DAILYWM EVELINE Quetiapine Fumarate 12.5 mg 08/28/19 22:00 08/30/19 06:49 Seroquel PO 12.5 mg BID EVELINE Administration Sodium Chloride 10 ml 08/29/19 01:00 08/30/19 10:24 Normal Saline Flush 0.9% IVP Not Given 0100,0900,1700 EVELINE - Lab Result Fish Bone Diagrams: 08/30/19 06:00 08/30/19 06:00 - Additional Planning My Orders: My Active Orders 08/30/19 08:35 Sodium Chloride 0.9% [Normal Saline 0.9%] 1,000 ml IV 100 mls/hr 08/30/19 09:00 Blood Culture [CULTURE, BLOOD #1] [] Urgent 08/30/19 09:08 Blood Culture [CULTURE, BLOOD #2] [] Urgent 08/30/19 11:00 Saccharomyces Boulardii [Florastor] 250 mg PO BIDWM 08/30/19 12:00 Azithromycin Inj [Zithromax Inj] 500 mg Sodium Chloride 0.9% [Normal Saline 0.9%] 250 ml IV Q24H 08/30/19 12:10 COVID-19 REFERENCE TEST Routine 08/30/19 14:00 Docusate Sodium 250Mg Capsule [Colace 250Mg Capsule] 250 - 500 mg PO DAILY Senna [Senokot] 8.6 - 17.2 mg PO DAILY Subjective - Subjective Nursing Reports: Confused Objective Vital Signs: Vital Signs - 24 hr 08/29/19 08/29/19 08/29/19 15:37 17:05 21:05 Temperature 37.3 C 37.9 C H Heart Rate [ 103 H 100 Brachial] Respiratory 18 Rate Blood Pressure 124/66 135/81 H [Right Brachial artery] O2 Saturation 97 94 98 08/29/19 08/30/19 23:47 08:07 Temperature 36.7 C 36.3 C L Heart Rate [ 99 93 Brachial] Respiratory 16 16 Rate Blood Pressure 92/53 L 113/65 [Right Brachial artery] O2 Saturation 95 95 Oxygen O2 Source Room air I&O (Last 24 Hrs): Intake and Output Totals x24h 08/28/19 08/29/19 08/30/19 23:59 23:59 23:59 Intake Total 1100 4491 1515.833 Output Total 100 Balance 1100 4391 1515.833 General: Alert, Mild distress HEENT: Atraumatic Neck: Supple Lymphatic: no adenopathy Neuro: Alert, Disoriented, Non Focal Cardiovascular: Normal S1, Normal S2 Respiratory: Chest non-tender, No respiratory distress Abdomen: Normal bowel sounds, Soft Extremities: Normal pulses - Results Results: Laboratory Results WBC 22.7 x10^3/uL (4.8-10.8) H 08/30/19 06:00 RBC 3.76 10^6/uL (4.20-5.40) L 08/30/19 06:00 Hgb 11.4 g/dL (12.0-16.0) L 08/30/19 06:00 Hct 35.0 % (37.0-47.0) L 08/30/19 06:00 MCV 93.1 fL (81.0-99.0) 08/30/19 06:00 MCH 30.3 pg (27.0-31.0) 08/30/19 06:00 MCHC 32.6 g/dL (32.0-36.0) 08/30/19 06:00 RDW 13.2 % (12.0-15.0) 08/30/19 06:00 Plt Count 164 10^3/uL (130-450) 08/30/19 06:00 MPV 10.9 fL (7.9-10.8) H 08/30/19 06:00 Neut # (Auto) 20.8 10^3/uL (1.5-6.6) H 08/30/19 06:00 Lymph # (Auto) 0.4 10^3/uL (1.5-3.5) L 08/30/19 06:00 Dyer # (Auto) 1.1 10^3/uL (0.0-1.0) H 08/30/19 06:00 Eos # (Auto) 0.0 10^3/uL (0.0-0.7) 08/30/19 06:00 Baso # (Auto) 0.2 10^3/uL (0.0-0.1) H 08/30/19 06:00 Absolute Nucleated RBC 0.00 x10^3/uL 08/30/19 06:00 Total Counted 100 08/28/19 14:55 Band Neuts % (Manual) 5 % (0-10) 08/28/19 14:55 Abnorm Lymph % (Manual) 0 % 08/28/19 14:55 Nucleated RBC % 0.0 /100WBC 08/30/19 06:00 Neutrophils # (Manual) 24.5 10^3/uL (1.5-6.6) H 08/28/19 14:55 Lymphocytes # (Manual) 0.3 10^3/uL (1.5-3.5) L 08/28/19 14:55 Monocytes # (Manual) 0.5 10^3/uL (0.0-1.0) 08/28/19 14:55 Eosinophils # (Manual) 0.0 10^3/uL (0-0.7) 08/28/19 14:55 Basophils # (Manual) 0.0 10^3/uL (0-0.1) 08/28/19 14:55 Differential Comment MANUAL DIFFERENTIAL 08/28/19 14:55 Manual Slide Review Indicated 08/30/19 06:00 Platelet Estimate NORMAL (130-450,000) (NORMAL) 08/29/19 05:25 Platelet Morphology NORMAL APPEARANCE (NORMAL) 08/29/19 05:25 RBC Morph Micro Appear 2+ ANISOCYTOSIS (NORMAL) 08/30/19 06:00 Sodium 138 mmol/L (135-145) 08/30/19 06:00 Potassium 4.0 mmol/L (3.5-5.0) 08/30/19 06:00 Chloride 110 mmol/L (101-111) 08/30/19 06:00 Carbon Dioxide 21 mmol/L (21-32) 08/30/19 06:00 Anion Gap 7.0 (6-13) 08/30/19 06:00 BUN 33 mg/dL (6-20) H 08/30/19 06:00 Creatinine 1.2 mg/dL (0.4-1.0) H 08/30/19 06:00 Estimated GFR (MDRD) 43 (>89) L 08/30/19 06:00 Glucose 119 mg/dL (70-100) H 08/30/19 06:00 Lactic Acid 1.7 mmol/L (0.5-2.2) 08/28/19 14:55 Calcium 9.0 mg/dL (8.5-10.3) 08/30/19 06:00 Magnesium 2.2 mg/dL (1.7-2.8) 08/29/19 05:25 Total Bilirubin 1.5 mg/dL (0.2-1.0) H 08/28/19 14:55 AST 26 IU/L (10-42) 08/28/19 14:55 ALT 30 IU/L (10-60) 08/28/19 14:55 Alkaline Phosphatase 118 IU/L (42-121) 08/28/19 14:55 Total Protein 6.0 g/dL (6.7-8.2) L 08/28/19 14:55 Albumin 3.0 g/dL (3.2-5.5) L 08/28/19 14:55 Globulin 3.0 g/dL (2.1-4.2) 08/28/19 14:55 Albumin/Globulin Ratio 1.0 (1.0-2.2) 08/28/19 14:55 Lipase 31 U/L (22-51) 08/28/19 14:55 Urine Color YELLOW 08/28/19 14:39 Urine Clarity HAZY (CLEAR) 08/28/19 14:39 Urine pH 5.5 PH (5.0-7.5) 08/28/19 14:39 Ur Specific Staples 1.015 (1.002-1.030) 08/28/19 14:39 Urine Protein 30 mg/dL (NEGATIVE) H 08/28/19 14:39 Urine Glucose (UA) NEGATIVE mg/dL (NEGATIVE) 08/28/19 14:39 Urine Ketones NEGATIVE mg/dL (NEGATIVE) 08/28/19 14:39 Urine Occult Blood TRACE-INTA (NEGATIVE) 08/28/19 14:39 Urine Nitrite NEGATIVE (NEGATIVE) 08/28/19 14:39 Urine Bilirubin NEGATIVE (NEGATIVE) 08/28/19 14:39 Urine Urobilinogen 1 (NORMAL) E.U./dL (NORMAL) 08/28/19 14:39 Ur Leukocyte Esterase NEGATIVE (NEGATIVE) 08/28/19 14:39 Urine RBC 0-5 /HPF (0-5) 08/28/19 14:39 Urine WBC 0-3 /HPF (0-5) 08/28/19 14:39 Ur Squamous Epith Cells RARE Squamous (<= Few) 08/28/19 14:39 Amorphous Sediment Few /LPF 08/28/19 14:39 Urine Bacteria Rare /HPF (None Seen) 08/28/19 14:39 Ur Microscopic Review INDICATED 08/28/19 14:39 Urine Culture Comments NOT INDICATED 08/28/19 14:39 Sepsis Event Note (H) - Evaluation Current Stage of Sepsis: Sepsis Possible source of Sepsis: positive: Genitourinary ABX Reporting Has patient been on IV antibiotics over the past 48 hours?: Yes Current Medications - Current Medications Current Medications: Active Medications Docusate Sodium (Colace 250mg Capsule) 250 - 500 mg PO DAILY EVELINE Donepezil HCl (Aricept) 5 mg PO QPM [facility] Last Admin: 08/29/19 21:33 Dose: 5 mg Acetaminophen (Ofirmev) 100 mls @ 400 mls/hr IV Q6HR PRN PRN Reason: PER PHYSICIAN ORDER Last Infusion: 08/29/19 17:43 Dose: Infused Ceftriaxone Sodium 2 gm/ (Sodium Chloride) 100 mls @ 200 mls/hr IV DAILY EVELINE Azithromycin 500 mg/ Sodium (Chloride) 250 mls @ 250 mls/hr IV Q24H [facility] Last Infusion: 08/30/19 14:02 Dose: Infused Sodium Chloride (Normal Saline 0.9%) 1,000 mls @ 75 mls/hr IV .[id number] [facility] Stop: 08/31/19 16:27 Metoprolol Succinate (Toprol Xl) 12.5 mg PO DAILY [facility] Multivitamins/Minerals (Theragran M) 1 tab PO DAILYWM [facility] Last Admin: 08/30/19 09:36 Dose: Not Given Quetiapine Fumarate (Seroquel) 12.5 mg PO BID [facility] Last Admin: 08/30/19 06:49 Dose: 12.5 mg Saccharomyces Boulardii (Florastor) 250 mg PO BIDWM [facility] Senna (Senokot) 8.6 - 17.2 mg PO DAILY [facility] Sodium Chloride (Normal Saline Flush 0.9%) 10 ml IVP PRN PRN PRN Reason: NEEDED PER PROVIDER ORDERS Sodium Chloride (Normal Saline Flush 0.9%) 10 ml IVP 0100,0900,1700 [facility] Last Admin: 08/30/19 10:24 Dose: Not Given QUEtiapine [SEROquel] 12.5 mg PO BID 05/05/19 Donepezil HCl 5 mg PO DAILY 08/28/19 Melatonin 5 mg PO DAILY PM 08/28/19 Mirtazapine 15 mg PO DAILY 08/28/19 Acetaminophen 500 mg PO Q4H PRN 08/29/19 Docusate Sodium [Dss] 250 mg PO BID 08/29/19 Mirabegron [Myrbetriq] 25 mg PO DAILY 08/29/19 Sennosides [Senna] 8.6 mg PO BID 08/29/19 Trazodone HCl 50 mg PO QPM 08/29/19
[2019-08-30] MEDS: DOCUSATE SODIUM 250 MG CAPSULE PO SCH (14:29)
[2019-08-30] MEDS: SENNA 8.6 MG TABLET PO SCH (14:37)
[2019-08-30] MEDS: DONEPEZIL 5 MG TABLET PO SCH (21:52)
[2019-08-31] MEDS: SODIUM CHLORIDE FLUSH 0.9% 10 ML SYRINGE IVP SCH ×3 (00:08→16:54)
[2019-08-31] MEDS: SODIUM CHLORIDE 0.9% 1,000 ML IV SCH (00:09)
[2019-08-31 06:02] LABS: BASOPHILS % (AUTO) 0.6 %; EOSINOPHILS % (AUTO) 0.4 %; HGB - HEMOGLOBIN 12.1 g/dL (12.0-16.0); LYMPHOCYTES % (AUTO) 2.6 %; MEAN CORPUSCULAR HEMOGLOBIN 30.5 pg (27.0-31.0); MEAN CORPUSCULAR HGB CONC 32.3 g/dL (32.0-36.0); MEAN CORPUSCULAR VOLUME 94.5 fL (81.0-99.0); MEAN PLATELET VOLUME 10.9 fL (7.9-10.8); MONOCYTES % (AUTO) 9.7 %; NEUTROPHILS % (AUTO) 84.8 %; PLT - PLATELET COUNT 175 10^3/uL (130-450); RED BLOOD COUNT 3.97 10^6/uL (4.20-5.40); RED CELL DISTRIBUTION WIDTH 13.2 % (12.0-15.0); WHITE BLOOD COUNT 20.2 x10^3/uL (4.8-10.8)
[2019-08-31 06:12] LABS: CALCIUM 9.2 mg/dL (8.5-10.3); CREATININE 0.9 mg/dL (0.4-1.0)
[2019-08-31 06:33] LABS: ABNORMAL LYMPHS % (MANUAL) 0 %; LYMPHOCYTES % (MANUAL) 0 %
[2019-08-31 07:02] LABS: BAND NEUTROPHILS % (MANUAL) 5 %; DIFFERENTIAL COMMENT MANUAL DIFFERENTIAL; EOSINOPHILS # (MANUAL) 0.2 10^3/uL (0-0.7)
[2019-08-31] MEDS: FUROSEMIDE 20 MG/2 ML VIAL IVP SCH ×2 (08:17→14:48)
[2019-08-31] MEDS: SENNA 8.6 MG TABLET PO SCH (08:17)
[2019-08-31] MEDS: SACCHAROMYCES BOULARDII 250 MG CAPSULE PO SCH ×2 (08:17→16:54)
[2019-08-31] MEDS: MULTIVITAMIN W/MINERALS TABLET PO SCH (08:17)
[2019-08-31] MEDS: QUEtiapine 25 MG TABLET PO SCH ×2 (08:18→21:51)
[2019-08-31] MEDS: cefTRIAXone 2 GM in SODIUM CHLORIDE 0.9% MINIBAG 100 ML IV SCH (08:18)
[2019-08-31] MEDS ORDERED: METOPROLOL SUCCINATE 25 MG TABLET PO SCH (09:00)
[2019-08-31] MEDS: DOCUSATE SODIUM 250 MG CAPSULE PO SCH (09:17)
[2019-08-31] MEDS: polyethylene glycoL 3350 17 GM PACKET PO SCH (09:18)
--- NOTE | 2019-08-31 10:58 | ADVANCE CARE PLANNING NOTE ---
Advance Care Planning - Planning Encounter Date: 08/31/19 Time: 10:58 Purpose: advance care plan Parties in Attendance: pt's daughter Praveena Mix, at phone [phone] Decisional Capacity of the Patient: pt has hx of advanced dementia and chronic confused, pt has no capacity to make her own decision. - Diagnosis for Encounter (5) UTI (urinary tract infection) Qualifiers: Urinary tract infection type: acute pyelonephritis Qualified Code(s): N10 - Acute pyelonephritis (6) Sepsis Qualifiers: Sepsis acute organ dysfunction status: with acute organ dysfunction Severe sepsis acute organ dysfunction type: acute renal failure Acute renal failure type: unspecified Severe sepsis shock status: without septic shock - Encounter Subjective/Patient's Story: I called patient's daughter Ms. Mix in this morning. pt's Covid 19 test is negative. I report pt's medical condition to her. patient developed bacteremia with UTI and pyelonephritis, and continue have mild fever and significant elevation of WBC cell. Also now patient developed pneumonia. wildlife technician Told me patient have systolic heart failure with the EF around 35. I am looking for the formal ECHO report. Patient continue have very poor appetite with anorexia and continues very confused with his history advanced dementia. Patient's daughter reported to me patient have history very poor appetite, a history advanced dementia and always confused, a history of kidney stone and hydronephrosis with infection. We discussed for patient quality of life and Medicare goal. Patient's daughter request at this time for the hospice care. Objective/Medical Story: pt continue very confused with advanced dementia, very poor appetite, anorexia, pt need total care and need feeding all the time. pt continue to have mild fever, and significant elevated WBC, bacteremia, chronic kidney stone and hydronenphrosis, UTI. now pt is found to have pneumonia, heart failure. Goals of Care: quality of life and advance care plan for pt Plan: pt's daughter request hospice care for pt. hospice referral is ordered Code Status: Do Not Attempt Resuscitation Time spent on advance care plannin
[2019-08-31] MEDS: lisinopriL 5 MG TABLET PO SCH (11:02)
--- NOTE | 2019-08-31 12:22 | PROVIDER PROGRESS NOTE ---
Subjective - Prog Note Date Prog Note Date: 08/31/19 - Subjective Pt reports feeling: Worse Subjective: I called patient's daughter Ms. Mix in this morning. Dr.Zina Huggins discussed the care plan with before. Ms Mix did not want her mother for urologist consult at the time. I report pt's medical condition to her. pt's Covid 19 test is negative. patient developed bacteremia with UTI and pyelonephritis, and continue have mild fever and continue to have significant elevation of WBC cell. Also now patient developed pneumonia. 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 I am looking for the formal ECHO report. Patient continue have very poor appetite with anorexia and continues very confused with his history advanced dementia. Patient's daughter reported to me patient had history of very poor appetite, a history of advanced dementia and confused, a history of kidney stone and hydronephrosis with infection. We discussed for patient quality of life and Medical goal. Patient's daughter request at this time for the hospice care to pt. Current Medications - Current Medications Current Medications: Active Medications Docusate Sodium (Colace 250mg Capsule) 250 - 500 mg PO DAILY [facility] Last Admin: 08/31/19 09:17 Dose: Not Given Donepezil HCl (Aricept) 5 mg PO QPM [facility] Last Admin: 08/30/19 21:52 Dose: 5 mg Furosemide (Lasix Inj 20mg Vial) 20 mg IVP BIDDIURETIC [facility] Last Admin: 08/31/19 08:17 Dose: 20 mg Acetaminophen (Ofirmev) 100 mls @ 400 mls/hr IV Q6HR PRN PRN Reason: PER PHYSICIAN ORDER Last Infusion: 08/29/19 17:43 Dose: Infused Ceftriaxone Sodium 2 gm/ (Sodium Chloride) 100 mls @ 200 mls/hr IV DAILY [facility] Stop: 09/03/19 09:29 Last Infusion: 08/31/19 09:17 Dose: Infused Azithromycin 500 mg/ Sodium (Chloride) 250 mls @ 250 mls/hr IV Q24H [facility] Stop: 09/01/19 12:59 Last Infusion: 08/30/19 14:02 Dose: Infused Lisinopril (Zestril) 5 mg PO DAILY [facility] Last Admin: 08/31/19 11:02 Dose: 5 mg Metoprolol Succinate (Toprol Xl) 25 mg PO DAILY [facility] Multivitamins/Minerals (Theragran M) 1 tab PO DAILYWM [facility] Last Admin: 08/31/19 08:17 Dose: 1 tab Polyethylene Glycol (Miralax) 17 gm PO DAILY [facility] Last Admin: 08/31/19 09:18 Dose: 17 gm Quetiapine Fumarate (Seroquel) 12.5 mg PO BID [facility] Last Admin: 08/31/19 08:18 Dose: 12.5 mg Saccharomyces Boulardii (Florastor) 250 mg PO BIDWM [facility] Last Admin: 08/31/19 08:17 Dose: 250 mg Senna (Senokot) 8.6 - 17.2 mg PO DAILY [facility] Last Admin: 08/31/19 08:17 Dose: 17.2 mg Sodium Chloride (Normal Saline Flush 0.9%) 10 ml IVP PRN PRN PRN Reason: NEEDED PER PROVIDER ORDERS Sodium Chloride (Normal Saline Flush 0.9%) 10 ml IVP 0100,0900,1700 [facility] Last Admin: 08/31/19 08:18 Dose: Not Given QUEtiapine [SEROquel] 12.5 mg PO BID 05/05/19 Donepezil HCl 5 mg PO DAILY 08/28/19 Melatonin 5 mg PO DAILY PM 08/28/19 Mirtazapine 15 mg PO DAILY 08/28/19 Acetaminophen 500 mg PO Q4H PRN 08/29/19 Docusate Sodium [Dss] 250 mg PO BID 08/29/19 Mirabegron [Myrbetriq] 25 mg PO DAILY 08/29/19 Sennosides [Senna] 8.6 mg PO BID 08/29/19 Trazodone HCl 50 mg PO QPM 08/29/19 Objective - Vital Signs/Intake & Output Vital Signs: Vital Signs x48h Temp Pulse Resp BP Pulse Ox 08/31/19 08:00 36.5 C 90 14 138/98 H 95 Intake & Output: Intake & Output 08/28/19 08/29/19 08/30/19 08/31/19 23:59 23:59 23:59 23:59 Intake Total 1100 4491 4232.500 410 Output Total 100 Balance 1100 4391 4232.500 410 - Objective General Appearance: positive: Alert, Mild distress. negative: Lethargic Eyes Bilateral: positive: Normal inspection, PERRL, No lid inflammation ENT: positive: ENT inspection nml, No signs of dehydration Neck: positive: Nml inspection, Trachea midline. negative: Stiff neck, Tracheal deviation Respiratory: positive: Chest non-tender, No respiratory distress. negative: Wheezes, Rales Cardiovascular: positive: Regular rate & rhythm, No murmur. negative: Irregularly irregular, Tachycardia, Bradycardia, Systolic murmur Peripheral Pulses: 2+ Radial (R), 2+ Radial (L) Abdomen: positive: Non-tender, No organomegaly, Nml bowel sounds. negative: Tenderness, Guarding, Rebound Back: positive: Nml inspection Skin: positive: Color nml, No rash, Warm, Dry. negative: Cyanosis, Diaphoresis, Pallor Extremities: positive: Non-tender, Nml appearance. negative: Calf tenderness, Shania's sign/cords Neurologic/Psychiatric: negative: Oriented x3, Weakness, Sensory loss, Facial droop, Slurred/abnml speech - Lab Results Fish Bones: 08/31/19 05:35 08/31/19 05:35 Other Labs: Lab Results x24hrs 08/31/19 08/31/19 08/31/19 Range/Units 05:35 05:35 05:35 WBC 20.2 H (4.8-10.8) x10^3/uL RBC 3.97 L (4.20-5.40) 10^6/uL Hgb 12.1 (12.0-16.0) g/dL Hct 37.5 (37.0-47.0) % MCV 94.5 (81.0-99.0) fL MCH 30.5 (27.0-31.0) pg MCHC 32.3 (32.0-36.0) g/dL RDW 13.2 (12.0-15.0) % Plt Count 175 (130-450) 10^3/uL MPV 10.9 H (7.9-10.8) fL Neut # (Auto) Not Reportable Lymph # (Auto) Not Reportable [place] # (Auto) Not Reportable Eos # (Auto) Not Reportable Baso # (Auto) Not Reportable Absolute Nucleated RBC Not Reportable Total Counted 100 Band Neuts % (Manual) 5 (0 - 10) % Abnorm Lymph % (Manual) 0 % Nucleated RBC % Not Reportable Neutrophils # (Manual) 18.0 H (1.5-6.6) 10^3/uL Lymphocytes # (Manual) 0.0 L (1.5-3.5) 10^3/uL Monocytes # (Manual) 2.0 H (0.0-1.0) 10^3/uL Eosinophils # (Manual) 0.2 (0-0.7) 10^3/uL Basophils # (Manual) 0.0 (0-0.1) 10^3/uL Differential Comment MANUAL DIFFERENTIAL Sodium 138 (135-145) mmol/L Potassium 3.5 (3.5-5.0) mmol/L Chloride 111 (101-111) mmol/L Carbon Dioxide 22 (21-32) mmol/L Anion Gap 5.0 L (6-13) BUN 30 H (6-20) mg/dL Creatinine 0.9 (0.4-1.0) mg/dL Estimated GFR (MDRD) 60 L (>89) Glucose 106 H (70-100) mg/dL Calcium 9.2 (8.5-10.3) mg/dL B-Natriuretic Peptide 2112 H (5-100) pg/mL Coronavirus (PCR) 08/30/19 Range/Units 12:10 WBC (4.8-10.8) x10^3/uL RBC (4.20-5.40) 10^6/uL Hgb (12.0-16.0) g/dL Hct (37.0-47.0) % MCV (81.0-99.0) fL MCH (27.0-31.0) pg MCHC (32.0-36.0) g/dL RDW (12.0-15.0) % Plt Count (130-450) 10^3/uL MPV (7.9-10.8) fL Neut # (Auto) Lymph # (Auto) [place] # (Auto) Eos # (Auto) Baso # (Auto) Absolute Nucleated RBC Total Counted Band Neuts % (Manual) (0 - 10) % Abnorm Lymph % (Manual) % Nucleated RBC % Neutrophils # (Manual) (1.5-6.6) 10^3/uL Lymphocytes # (Manual) (1.5-3.5) 10^3/uL Monocytes # (Manual) (0.0-1.0) 10^3/uL Eosinophils # (Manual) (0-0.7) 10^3/uL Basophils # (Manual) (0-0.1) 10^3/uL Differential Comment Sodium (135-145) mmol/L Potassium (3.5-5.0) mmol/L Chloride (101-111) mmol/L Carbon Dioxide (21-32) mmol/L Anion Gap (6-13) BUN (6-20) mg/dL Creatinine (0.4-1.0) mg/dL Estimated GFR (MDRD) (>89) Glucose (70-100) mg/dL Calcium (8.5-10.3) mg/dL B-Natriuretic Peptide (5-100) pg/mL Coronavirus (PCR) NEGATIVE ABX Reporting Has patient been on IV antibiotics over the past 48 hours?: Yes Sepsis Event Note (H) - Evaluation Current Stage of Sepsis: Sepsis Possible source of Sepsis: positive: Genitourinary Assessment/Plan - Problem List (1) Pneumonia Impression: 08/30 no fever today, pt's daughter want pt have hospice care, we will d/c antibiotics as hospice set. Patient still has lower degree fever, and required 4 liter of O2 at morning. WBC is still at 22. order CXR which reveals left lower airspace degree. add Azithyromycin, continue Rocephin, and test Covid-19 test. continue supplement of O2 as needed (2)systolic heart failure property technician report pt has 35% EF, we are waiting ECHO reading. will check BNP. start on lower dosage metoprolol, pt's BP is at slight lower side. reduced IVF to 75cc/h, nurse report pt has very poor oral drink and poor oral eating. (3) Sepsis 08/30 pt's WBC is still at 20. Rocephin is sensitive to Ecoli. will d/c antibiotics, since pt chose hospice for pt. pt still present lower degree. pt has bacteremia with Ecoli infection, now plus pneumonia. continue antibiotics, and gently IVF. order blood culture again to make sure pt has no more bacteremia. (4) E. coli bacteremia Assessment/Plan: The blood culture both tube had already been identified as E. coli.bacteremia Continue with IV ceftriaxone which is empiric treatment, awaiting final sensitivities. Because she is bacteremic, a repeat set of cultures will be done to assure that they are negative. order today She also needs an Echo to evaluate for endocarditis. per property technician report it is not likely endocarditis. Staph aureus is the most infection and trouble bacterial to cause endocarditis. pt's bacteremia is Ecoli. (5) DUC (acute kidney injury) Assessment/Plan: Improved from 49/1 0.7-40 7/1.4. Continue with IV hydration, slight reduced IVF rate because of heart failure. Follow-up BMP daily (6) Pyelonephritis Assessment/Plan: Imaging showed kidney involvement. repeated US of kidney reveals likely marked left hydronephrosis, infection has the similar appearance. Continue with IV antibiotics. Follow BUN/creat daily. kidney function is improved now. (7) Hydronephrosis Assessment/Plan: family did not want to have urologic intervention per ER doctor discussed with pt's family. continue antibiotics, and IVF (8) advanced Dementia pt is still very confused today, will treat underline acute infection, closely monitor pt (9) Depression Assessment/Plan: stable. Continue with home p.o. meds (10)anorexia nurse continue feeding pt, but pt only ate a few bites. we will discuss with pt's family for advance care if pt continue anorexia. (11)hospice care discussed with care plan and care goal with pt's daughter, daughter chose hospice care for pt. I report pt's medical condition to her. pt's Covid 19 test is negative. patient developed bacteremia with UTI and pyelonephritis, and continue have mild fever and continue to have significant elevation of WBC cell. Also now patient developed pneumonia. 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 I am looking for the formal ECHO report. Patient continue have very poor appetite with anorexia and continues very confused with his history advanced dementia. Patient's daughter reported to me patient had history of very poor appetite, a history of advanced dementia and confused, a history of kidney stone and hydronephrosis with infection. We discussed for patient quality of life and Medical goal. Patient's daughter request at this time for the hospice care to pt. referral to hospice care (6) UTI (urinary tract infection) Qualifiers: Urinary tract infection type: acute pyelonephritis Qualified Code(s): N10 - Acute pyelonephritis (7) Sepsis Qualifiers: Sepsis acute organ dysfunction status: with acute organ dysfunction Severe sepsis acute organ dysfunction type: acute renal failure Acute renal failure type: unspecified Severe sepsis shock status: without septic shock
[2019-08-31] MEDS: AZITHROMYCIN INJ 500 MG in SODIUM CHLORIDE 0.9% 250 ML IV SCH (12:29)
[2019-08-31] MEDS: SODIUM CHLORIDE FLUSH 0.9% 10 ML SYRINGE IVP PRN ×2 (12:30→14:48)
[2019-08-31] MEDS: DONEPEZIL 5 MG TABLET PO SCH (21:51)
[2019-09-01] MEDS: SODIUM CHLORIDE FLUSH 0.9% 10 ML SYRINGE IVP SCH ×2 (01:47→09:56)
[2019-09-01 05:06] LABS: BASOPHILS % (AUTO) 0.7 %; EOSINOPHILS % (AUTO) 0.3 %; HGB - HEMOGLOBIN 12.3 g/dL (12.0-16.0); MEAN CORPUSCULAR HEMOGLOBIN 29.9 pg (27.0-31.0); MEAN CORPUSCULAR HGB CONC 32.8 g/dL (32.0-36.0); MEAN CORPUSCULAR VOLUME 91.2 fL (81.0-99.0); MEAN PLATELET VOLUME 11.3 fL (7.9-10.8); MONOCYTES % (AUTO) 6.1 %; NEUTROPHILS % (AUTO) 85.6 %; PLT - PLATELET COUNT 111 10^3/uL (130-450); RED BLOOD COUNT 4.11 10^6/uL (4.20-5.40); RED CELL DISTRIBUTION WIDTH 13.1 % (12.0-15.0); WHITE BLOOD COUNT 21.5 x10^3/uL (4.8-10.8)
[2019-09-01 05:13] LABS: CALCIUM 8.7 mg/dL (8.5-10.3)
[2019-09-01 05:17] LABS: ABNORMAL LYMPHS % (MANUAL) 0 %
[2019-09-01 05:21] LABS: CHOL/HDL RATIO 9.4 (<4.4); CHOLESTEROL 122 mg/dL; HDL CHOLESTEROL 13 mg/dL; LDL CHOLESTEROL,CALCULATED 82 mg/dL; LDL/HDL RATIO 6.3 (<4.4); VLDL CHOLESTEROL 27 mg/dL
[2019-09-01 05:39] LABS: BAND NEUTROPHILS % (MANUAL) 16 %; LYMPHOCYTES # (MANUAL) 1.5 10^3/uL (1.5-3.5); LYMPHOCYTES % (MANUAL) 7 %; MONOCYTES # (MANUAL) 0.6 10^3/uL (0.0-1.0); PLATELET ESTIMATE, MANUAL DECREASED (<130,000) (NORMAL); RBC MORPHOLOGY (MULTIPLE) NORMAL APPEARANCE (NORMAL)
[2019-09-01 05:40] LABS: DIFFERENTIAL COMMENT MANUAL DIFFERENTIAL
[2019-09-01] MEDS: SODIUM CHLORIDE FLUSH 0.9% 10 ML SYRINGE IVP PRN (07:08)
[2019-09-01] MEDS: FUROSEMIDE 20 MG/2 ML VIAL IVP SCH (07:08)
[2019-09-01] MEDS ORDERED: POTASSIUM CHLORIDE 20 MEQ TABLET PO ONE (08:04)
[2019-09-01] MEDS ORDERED: ENOXAPARIN 40 MG/0.4 ML SYRINGE SUBQ SCH (09:00)
[2019-09-01] MEDS ORDERED: METOPROLOL SUCCINATE 25 MG TABLET PO SCH (09:00)
--- NOTE | 2019-09-01 09:12 | Discharge Plan ---
"Discharge Plan for SNF / LONGTERM - Discharge Plan And Transition Orders Problem Reviewed?: Yes Disposition: 50 Hospice/Home DC/Xfer Condition: Serious Allergies and Adverse Reactions: Allergies Allergy/AdvReac Type Severity Reaction Status Date / Time oxybutynin Allergy Unknown Verified 05/05/19 17:51 sertraline [From Zoloft] AdvReac Unknown Verified 05/05/19 17:51 Health Concerns: hospice care Plan of Treatment: advise pt followup hospice care on today after d/c from hospital Care Goals: quality of life and advance care Assessment: discussed with pt's daughter Praveena Mix on yesterday, she requested hospice care for pt. consulted with social media marketing analyst and referral to hospice care team. - SNF / LONGTERM Transition Orders Admit to (Facility): [facility] Under the care of (Name): hospice team Discharge Diagnosis: sepsis, bacteremia, pneumonia, heart failure, DUC, pyelonephritis, advanced dementia, anorexia, Medicare Certification Statement: I certify that Post Hospital correction care is medically necessary on a continuing basis for any of the conditions for which she/he is receiving care during hospitalization. Notify PCP of admission and forward orders to primary provider for signature. Other Notification Orders: Call PCP immediately if patient develops dyspnea, chest pain/tightness or edema. Additional Bowel Program Orders: If no BM after 2 days, nurse may give M.O.M. 30ml PO PRN and/or ducolax Supp 1 MD and/or BRYAN 250mg P.O., and/or senna 1-2 tabs PO. On day 3 nurse may give repeat above order until residents constipation is resolved. Treatments & Other Orders: followup hospice care Medication Orders: PLEASE REFER TO THE DISCHARGE MEDICATION LIST. Insulin Orders?: No - Medications New Prescriptions: LORazepam [Ativan] 0.5 mg PO Q6H PRN #10 tablet PRN Reason: Anxiety Morphine Sulfate [Morphine Sulf Oral (Roxanol)] 5 mg PO Q2H PRN #30 ml PRN Reason: Pain/Dyspnea - Therapies | Activity Additional Instructions: pt may followup hospice care after pt is d/c from hospital"
--- NOTE | 2019-09-01 09:22 | DISCHARGE SUMMARY ---
"Discharge Summary Admit Date: 08/28/19 Discharge Date: 09/01/19 Discharging Provider: Ramirez Burger Primary Care Provider: Monica Ann Condition at Discharge: Serious Discharge Disposition: 50 Hospice/Home DC/Xfer Discharge Facility Name: [facility] - DIAGNOSES Admission Diagnoses: (1) Sepsis (2) Pyelonephritis (3) DUC (acute kidney injury) (4) Dementia (5) Depression Discharge Diagnoses with Status of Each Condition: (1) Pneumonia pt was treated with antibiotics, family chose hospice care, followup hospice care. (2)systolic heart failure systolic heart failure with 35% EF, followup hospice care (3) Sepsis at admission patient had a fever, elevated WBC, initiated patient with a UTI, And patient found of bacteremia in tubal blood culture. pt was treated with antibiotics and followup hospice care (4) E. coli bacteremia The blood culture both tube had already been identified as E. coli.bacteremia (5) DUC (acute kidney injury) Assessment/Plan: improved (6) Pyelonephritis Patient have history of pyelonephritis, history of kidney stone. pt was treated with antibiotics and followup hospice care (7)hydronephrosis pt has moderate to severe pelvicaliectasis. pt's family declined to have urologist consult, followup hospice care (8) advanced Dementia pt is always confused in the hospital course. followup hospice care (9) Depression chronic (10)anorexia severe malnutrition, followup hospice care (11)hospice care I discussed with patient's daughter Ms. Mix about care plan. I reported pt's Covid 19 test is negative. I report pt's medical condition to her. patient developed bacteremia with UTI and pyelonephritis, and continue have mild fever and significant elevation of WBC cell. Also now patient developed pneumonia. patient have systolic heart failure with the EF 35%. Patient continue have very poor appetite with anorexia and continues very confused with his history advanced dementia. Patient's daughter reported to me patient have history very poor appetite, a history advanced dementia and always confused, a history of kidney stone and hydronephrosis with infection. We discussed pt's daughter for patient quality of life and care goal. Patient's daughter request the hospice care. - HPI History of Present Illness: refer from [facility]'s HPI on 08/28/2019 This HPI is obtained from the HPI of the ED H&P. An HPI could not be obtained from the patient because she has dementia thus she is not a good historian. This is a tere but confused demented 78-year-old woman who presents by ambulance from [facility] for presumed UTI. There is a report of a temperature of 100.6. A urinalysis was done 2 days ago which was positive and a urine culture is growing gram-negative rods, greater than 100,000 colony-forming units per milliliter. She also had an ultrasound which was notable for renal obstruction. The patient is unable to give any history due to dementia. Despite dementia it is reported that she was more obtunded than her baseline. In the ED she was found to have a white blood cell count of 25.She also had a temperature of 38.4 C. Her creatinine was 1.7 which is doubled from her baseline. CT scan of the abdomen/pelvis done showed increased hydronephrosis of the left kidney with moderate to severe pelvicaliectasis.. There was also new left perinephric inflammatory changes of fluid. As a result of this findings she is being admitted for further treatment - CONSULTS | PROCEDURES Consultations: referal to hospice care - HOSPITAL COURSE Hospital Course: Patient was admitted from [facility] for fever and a UTI, patient was also found to have bacterial anemia. CT scan of the abdomen/pelvis done showed increased hydronephrosis of the left kidney with moderate to severe pelvicaliectasis.Patient was very confused in the hospital, patient also found to have very poor appetite. Patient also developed a pneumonia, echo evaluation showed patient have 35% of the EF with systolic heart failure. Patient has a history of advancing dementia, patient will of also very confused in the hospital. Discussed with the patient's daughter via the phone. patient's daughter requests for hospice care.Detailed hospital course is as below (1) Pneumonia pt was treated with antibiotics, family chose hospice care, followup hospice care. (2)systolic heart failure systolic heart failure with 35% EF, followup hospice care (3) Sepsis at admission patient had a fever, elevated WBC, initiated patient with a UTI, And patient found of bacteremia in tubal blood culture. pt was treated with antibiotics and followup hospice care (4) E. coli bacteremia The blood culture both tube had already been identified as E. coli.bacteremia (5) DUC (acute kidney injury) Assessment/Plan: improved (6) Pyelonephritis Patient have history of pyelonephritis, history of kidney stone. pt was treated with antibiotics and followup hospice care (7)hydronephrosis pt has moderate to severe pelvicaliectasis. pt's family declined to have u rologist consult, followup hospice care (8) advanced Dementia pt is always confused in the hospital course. followup hospice care (9) Depression chronic (10)anorexia severe malnutrition, followup hospice care (11)hospice care I discussed with patient's daughter Ms. Mix about care plan. I reported pt's Covid 19 test is negative. I report pt's medical condition to her. patient developed bacteremia with UTI and pyelonephritis, and continue have mild fever and significant elevation of WBC cell. Also now patient developed pneumonia. patient have systolic heart failure with the EF around 35%. Patient continue have very poor appetite with anorexia and continues very confused with his history advanced dementia. Patient's daughter reported to me patient have history very poor appetite, a history advanced dementia and always confused, a history of kidney stone and hydronephrosis with infection. We discussed pt's daughter for patient quality of life and care goal. Patient's daughter request the hospice care. - ALLERGIES Allergies/Adverse Reactions: Allergies Allergy/AdvReac Type Severity Reaction Status Date / Time oxybutynin Allergy Unknown Verified 05/05/19 17:51 sertraline [From Zoloft] AdvReac Unknown Verified 05/05/19 17:51 - MEDICATIONS Home Medications: Ambulatory Orders Medication Instructions Recorded Confirmed QUEtiapine [SEROquel] 12.5 mg PO BID 05/05/19 08/29/19 Donepezil HCl 5 mg PO DAILY 08/28/19 08/28/19 Melatonin 5 mg PO DAILY PM 08/28/19 08/28/19 Mirtazapine 15 mg PO DAILY 08/28/19 08/28/19 Acetaminophen 500 mg PO Q4H PRN 08/29/19 08/29/19 Docusate Sodium [Dss] 250 mg PO BID 08/29/19 08/29/19 Mirabegron [Myrbetriq] 25 mg PO DAILY 08/29/19 08/29/19 Sennosides [Senna] 8.6 mg PO BID 08/29/19 08/29/19 Trazodone HCl 50 mg PO QPM 08/29/19 08/29/19 LORazepam [Ativan] 0.5 mg PO Q6H PRN #10 tablet 09/01/19 Morphine Sulfate [Morphine Sulf 5 mg PO Q2H PRN #30 ml 09/01/19 Oral (Roxanol)] - PHYSICAL EXAM AT DISCHARGE General Appearance: positive: Alert Eyes Bilateral: positive: Normal inspection, No lid inflammation ENT: positive: ENT inspection nml, No signs of dehydration. negative: Purulent nasal drainage Neck: positive: Nml inspection, Thyroid nml, Trachea midline. negative: Stiff neck, Tracheal deviation Respiratory: positive: Chest non-tender, No respiratory distress, Rhonchi. negative: Wheezes Cardiovascular: positive: Irregularly irregular, Tachycardia, Systolic murmur Peripheral Pulses: positive: 2+ Abdomen: positive: Non-tender, No organomegaly. negative: Tenderness Back: positive: Nml inspection Skin: positive: Warm, Dry. negative: Cyanosis, Diaphoresis, Pallor Extremities: positive: Non-tender. negative: Calf tenderness Neurologic/Psychiatric: negative: Sensory loss, Facial droop, Slurred/abnml speech - LABS Result Diagrams: 09/01/19 04:50 09/01/19 04:50 - SEPSIS Current Stage of Sepsis: Sepsis Possible source of Sepsis: Genitourinary - FOLLOW UP Follow Up: followup hospice care - TIME SPENT Time Spent in Discharge (Minutes): 30"
[2019-09-01] MEDS: MULTIVITAMIN W/MINERALS TABLET PO SCH (09:48)
[2019-09-01] MEDS: SACCHAROMYCES BOULARDII 250 MG CAPSULE PO SCH (09:48)
[2019-09-01] MEDS: QUEtiapine 25 MG TABLET PO SCH (09:49)
[2019-09-01] MEDS: SENNA 8.6 MG TABLET PO SCH (09:49)
[2019-09-01] MEDS: polyethylene glycoL 3350 17 GM PACKET PO SCH (09:49)
[2019-09-01] MEDS: cefTRIAXone 2 GM in SODIUM CHLORIDE 0.9% MINIBAG 100 ML IV SCH (09:49)
[2019-09-01] MEDS: DOCUSATE SODIUM 250 MG CAPSULE PO SCH (09:52)
[2019-09-01] MEDS: lisinopriL 5 MG TABLET PO SCH (09:52)
[2019-09-01] MEDS ORDERED: SODIUM CHLORIDE 0.9% 500 ML IV ONE (10:07)
[2019-09-01] MEDS: POTASSIUM CHLOR 10 MEQ/100 ML 10 MEQ/100 ML BAG IV SCH ×3 (10:23→12:34)
[2019-09-01 11:02] VITALS: BP 106/56
== END 2019-09-01 14:22 | disposition hospice, home (50) | DRG 871 ==
LOC: EDUNIT# → ED 14:20 → MS2 18:19
PROVIDERS: ADMIT Internal Medicine; ATTEND Nurse Practitioner Gerontology
DX: A41.51 Sepsis due to Escherichia coli [E. coli] (principal); E43 Unspecified severe protein-calorie malnutrition; J18.9 Pneumonia, unspecified organism; N17.9 Acute kidney failure, unspecified; N28.89 Other specified disorders of kidney and ureter; Z68.1 Body mass index [BMI] 19.9 or less, adult; I50.20 Unspecified systolic (congestive) heart failure; F41.9 Anxiety disorder, unspecified; A41.9 Sepsis, unspecified organism; N10 Acute pyelonephritis; N13.30 Unspecified hydronephrosis; R63.0 Anorexia; G30.9 Alzheimer's disease, unspecified; F02.80 Dementia in other diseases classified elsewhere, unspecified severity, without behavioral disturbance, psychotic disturbance, mood disturbance, and anxiety; R65.20 Severe sepsis without septic shock; F32.9 Major depressive disorder, single episode, unspecified; Z66 Do not resuscitate; Z20.828 Contact with and (suspected) exposure to other viral communicable diseases; Z51.5 Encounter for palliative care; Z87.442 Personal history of urinary calculi
CPT/HCPCS: 36415; 51701; 71045; 74176; 76775; 80048; 80053; 80061; 81001; 83605; 83690; 83735; 83880; 85025; 87040; 87077; 87181; 93306; 96361; 96365; 99285; A9270; J0131; J1650; Q9967; U0004; 81003; 81599; 83721; 87086

== ENCOUNTER 2019-09-01 14:15 | Outpatient (CLI) | payer MEDICARE | END 2019-09-01 14:16 | disposition home or self-care (01) | LOC: EMS 14:15 | PROVIDERS: ATTEND Surgery | DX: A41.9 Sepsis, unspecified organism (principal); F03.90 Unspecified dementia, unspecified severity, without behavioral disturbance, psychotic disturbance, mood disturbance, and anxiety; Z74.01 Bed confinement status | CPT/HCPCS: A0425; A0428 ==